=== PATIENT | male | born 1980 | race Hispanic/Latino ===

== ENCOUNTER 2022-01-26 18:47 | Inpatient (IN) | payer SELFPAY ==
[2022-01-26] VITALS (13 sets, daily range): BP systolic 127–142; BP diastolic 75–87; PULSE 93–120; RESP 17–28; TEMP 36.8; O2SAT 95–100
--- NOTE | ~2022-01-26 | US_ITS ---
EXAMINATION: US venous doppler [facility] DATE: 01/27/2022 16:58 INDICATION: Lymphadenopathy and swelling TECHNIQUE: Gillespie scale images without and with compression and Doppler images of the bilateral lower e xtremity veins were obtained. COMPARISON: None FINDINGS: The right common femoral vein, profunda femoral vein, femoral vein, popliteal vein, peroneal trunk, p osterior tibial veins, and greater saphenous vein are patent. The left common femoral vein, profunda femoral vein, femoral vein, popliteal vein, peroneal trunk, po sterior tibial veins, and greater saphenous vein are patent. IMPRESSION: 1. Patent bilateral lower extremity veins. No evidence of deep venous thrombosis. Reviewed, dictated and finalized at location A. IMPRESSION: 1. Patent bilateral lower extremity veins. No evidence of deep venous thrombosi s.
--- NOTE | ~2022-01-26 | US_ITS ---
EXAMINATION: US venous doppler [facility] DATE: 01/27/2022 16:59 INDICATION: Lymphedema and upper extremity swelling TECHNIQUE: Grayscale ultrasound images without and with compression and Doppler ultrasound images of the bilateral upper extremity veins were obtained. COMPARISON: CT from yesterday. FINDINGS: There is thrombus in the right brachial vein. The right internal jugular vein, subclavian vein, axill janna vein, basilic vein, and cephalic vein are patent. The radial vein and ulnar vein are not evaluate d. A left supraclavicular mass is noted, consistent with the mass seen on CT. There is thrombosis of the left internal jugular vein, subclavian vein, and axillary vein. The brachial vein and cephalic vein. The radial vein and ulnar vein are nondilated evaluated. IMPRESSION: 1. Thrombosis of the left internal jugular vein, subclavian vein, and axillary vein. 2. Thrombosis in the right brachial vein. Reviewed, dictated and finalized at location A.
--- NOTE | ~2022-01-26 | XR_ITS ---
EXAMINATION: XR chest 1V portable INDICATION: Shortness of breath TECHNIQUE: Portable AP chest at 1007 hours COMPARISON: CT from yesterday FINDINGS: There is mild atelectasis of the lungs. There is no pleural effusion or pneumothorax. The h eart size is normal. There is mild widening of the superior mediastinum. There is asymmetric soft tis bonifacio density in the left supraclavicular region. IMPRESSION: 1. Mild atelectasis. 2. Asymmetric soft tissue density in the left supraclavicular region and mild widening of the mediast inum, consistent with lymphadenopathy seen on the comparison CT. Reviewed, dictated and finalized at location A. IMPRESSION: 1. Mild atelectasis. 2. Asymmetric soft tissue density in the left supraclavicular region and mild w idening of the mediastinum, consistent with lymphadenopathy seen on the compari son CT.
--- NOTE | ~2022-01-26 | CT_ITS ---
EXAMINATION: CT soft tiss nk chst ab pel w DATE: 01/26/2022 23:26 INDICATION: Left neck swelling. Low back pain. Constipation. TECHNIQUE: Computed tomography (CT) of the neck, chest, abdomen, and pelvis was performed with 100 mL Omnipaque 350 intravenous contrast. Automated exposure control and iterative reconstruction techniqu e were employed. The dose-length product was 1454.90 mGy-cm. COMPARISON: CT abdomen and pelvis 03/12/2013 FINDINGS: NECK CT: There is widespread lymphadenopathy in the left neck including the left internal jugular, spinal acce ssory, superficial, and parotid chains. For example, a alex mass in left spinal accessory chain nani ures 5.4 x 4.9 cm. The cervical carotid arteries are normal. CHEST CT: The lungs demonstrate mild atelectasis. There are small bilateral pleural effusions. The heart size i s normal. No pericardial effusion. There is mediastinal and bilateral axillary lymphadenopathy. There is an intermuscular mass in left posterior thorax. There is hypodensity in left subclavian and axill janna veins suspicious for thrombosis. ABDOMEN/PELVIS CT: The liver and spleen are normal. The gallbladder is distended. The pancreas, adrenal glands, and kidn eys are normal. There are no dilated loops of bowel. The appendix is normal. There is a small volume of ascites. There is periportal, periceliac, mesenteric, aortocaval, left para-aortic, bilateral comm on iliac, bilateral external iliac, and bilateral internal iliac lymphadenopathy. There is a 2.0 x 1. 4 cm mass in the bladder. There are scattered peritoneal masses including serosal masses of the colon . There is widespread edema of the mesentery. Some of the pelvic veins are enlarged. There is mild omari mbar spondylosis. IMPRESSION: 1. Widespread lymphadenopathy involving the left neck, chest, abdomen, and pelvis. Left posterior jose st wall mass. Bladder mass. Peritoneal masses. The differential diagnosis includes widespread metasta tic disease, lymphoma, and infection such as tuberculosis. Ultrasound-guided core needle biopsy of a left neck lymph node is recommended. 2. Hypodensity in left subclavian and axillary veins and some of the pelvic veins suspicious for thro mbosis. Ultrasound is recommended. 3. Gallbladder distention, which may be secondary to fasting. 4. Small pleural effusions. 5. Small volume of ascites. Reviewed, dictated and finalized at location B. IMPRESSION: 1. Widespread lymphadenopathy involving the left neck, chest, abdomen, and pelv is. Left posterior chest wall mass. Bladder mass. Peritoneal masses. The differ ential diagnosis includes widespread metastatic disease, lymphoma, and infectio n such as tuberculosis. Ultrasound-guided core needle biopsy of a left neck lym ph node is recommended. 2. Hypodensity in left subclavian and axillary veins and some of the pelvic vei ns suspicious for thrombosis. Ultrasound is recommended. 3. Gallbladder distention, which may be secondary to fasting. 4. Small pleural effusions. 5. Small volume of ascites.
--- NOTE | 2022-01-26 22:02 | PC.NURSE ---
Seda used for interpretation.
--- NOTE | 2022-01-26 22:11 | PC.NURSE ---
Patient has swelling to the left side of his neck.
[2022-01-26] MEDS: MORPHINE SULFATE (*CRX) 4 MG/ML INJ IV PUSH (22:27)
[2022-01-26 22:37] LABS: Basophils Absolute Auto 0.1 K/mm3 (0.0-0.1); Basophils Percent Auto 0.8 % (0.2-1.2); Eosinophils Absolute Auto 0.2 K/mm3 (0-0.3); Eosinophils Percent Auto 2.4 % (0-4.4); Hemoglobin 13.3 g/dL (14.0-18.0); Immature Granulocyte Absolute 0.02 K/mm3 (0.00-0.031); Immature Granulocyte Percent A 0.2 % (0-0.5); Lymphocytes Absolute Auto 0.77 K/mm3 (0.9-3.2); Lymphocytes Percent Auto 7.7 % (18.3-44.2); Mean Corpuscular HGB Conc 33.3 g/dl (32-36); Mean Corpuscular Hemoglobin 27.9 pg (26-34); Monocytes Absolute Auto 0.8 K/mm3 (0.1-0.6); Monocytes Percent Auto 7.7 % (2.6-8.5); Neutrophils Absolute Auto 8.2 K/mm3 (1.3-6.7); Neutrophils Percent Auto 81.2 % (45.5-73.1); Platelet Count Result 366 k/mm3 (150-375); Red Blood Count 4.76 M/mm3 (4.6-6.20); Red Cell Distribution Width 13.6 % (11.5-14.5); White Blood Count 10.1 K/mm3 (4.5-10.0)
[2022-01-26 22:39] LABS: Alanine Aminotransferase 24 U/L (4-50); Albumin Level 3.5 g/dL (3.5-5.1); Alkaline Phosphatase 114 U/L (38-126); Anion Gap 9 mmol/L (8-16); Aspartate Amino Transferase 33 U/L (17-59); Bilirubin,Total 0.5 mg/dL (0.2-1.3); Blood Urea Nitrogen 10 mg/dL (9-20); Carbon Dioxide 22 mmol/L (22-30); Chloride 99 mmol/L (98-107); Estimated CRCL calculation 127 ml/min; Estimated Glomerular Filt Rate > 60; Glucose 108 mg/dL (65-110); Potassium 3.3 mmol/L (3.4-5.0); Sodium 130 mmol/L (137-145)
[2022-01-26 22:39] LABS: INR 1.2; Prothrombin Time 14.3 Seconds (11.1-14.7)
[2022-01-26 22:40] LABS: Partial Thromboplastin Time 29.1 SECONDS (22.3-36.8)
--- NOTE | 2022-01-26 23:04 | PC.NURSE ---
Patient taken to CT at this time.
[2022-01-27] VITALS (15 sets, daily range): BP systolic 112–131; BP diastolic 68–81; PULSE 88–106; RESP 16–28; TEMP 36.4–36.9; O2SAT 97–100
--- NOTE | 2022-01-27 01:15 | ED.GENADULT ---
HPI - General Adult General Chief complaint: Back Pain/Injury Stated complaint: low back pain for 2-3 weeks Time Seen by Provider: 01/26/22 21:55 History of Present Illness HPI narrative: Patient is a 41-year-old male that is Czech-speaking who presents ER for the low back pain. Its been ongoing for 2 to 3 weeks. Aching. Right side above his buttock. No radiation down his leg. He has had no fall or trauma. No lifting injury. Reports its worse late in the day when he comes home from work. He works in construction. No fevers or chills or sweats. Patient does report that he has been having issues with constipation over the last 6 weeks. He feels like he has a hard time using the restroom and so then he will take a laxative and is able to go. He did have a bowel movement today. No nausea or vomiting. No saddle anesthesia. No incontinence of bowel or bladder. No lower extremity weakness. After discussing the patient's back discomfort it was noted that patient had significant enlargement of the left side of his neck. He reports that just developed over the last day. He has noticed the breathing or swallowing or with turning his head. He reports his mom has cancer but he does not know what kind. She denies any other family history. Related Data Allergies Allergy/AdvReac Type Severity Reaction Status Date / Time No Known Allergies Allergy Verified 01/26/22 18:52 Review of Systems Review of Systems: All systems reviewed & are unremarkable except as noted in HPI and below Constitutional: Constitutional: Denies chills, Denies fever(s) and Denies weakness ENT: Denies nasal congestion and Denies sore throat Gastrointestinal: Gastrointestinal: Denies abdominal pain, Denies nausea and Denies vomiting Genitourinary: Genitourinary: Denies dysuria, Denies urinary frequency and Denies urinary incontinence Comments: Occasional difficulty urinating. Musculoskeletal: Musculoskeletal: Reports back pain, Denies joint swelling and Denies muscle cramps Neurologic: Denies headache(s), Denies focal weakness and Denies numbness PMFSH Past Medical History Medical History (Updated 01/27/22 @ 03:41 by Weston Park MD) Healthy adult male Surgical History Surgical History (Updated 01/27/22 @ 01:19 by Weston Park MD) No history of previous surgery Social History Social History (Updated 01/27/22 @ 01:20 by Weston Park MD) Alcohol intake: current Exam Narrative: GENERAL: Well-appearing, well-nourished, and in no acute distress. HEAD: Normocephalic, atraumatic. EYES: PERRL and EOMI. stye of the left upper eyelid. ENT: Mucous membranes moist. NECK: Swelling and regular mass left neck and supraclavicular region. CHEST: Clear to auscultation. No respiratory distress. HEART: Regular rate and rhythm. Normal peripheral pulses. : Normal-appearing penis without urethral discharge or penile lesions. Testicles nontender and without nodules. ABDOMEN: Soft, nontender, nondistended. EXTREMITIES: Normal range of motion. No edema. SKIN: Warm, dry, no rash. NEURO: Alert and oriented x3. Course Course Emergency Course: Patient has been informed of results and treatment plan. Discussed that he may have lymphoma and should be admitted for observation and biopsy of his lymph nodes. Patient would like to know if his discomfort could be related to an untreated sexually transmitted infection. He has no purulent discharge. His last sexual intercourse was several years ago. He would like a test just to be sure. We will oblige. General surgery has been consulted in regards to the biopsy. Vital Signs Vital signs: Vital Signs Temperature 98.3 F 01/26/22 18:50 Pulse Rate 120 H 01/26/22 18:50 Respiratory Rate 17 01/26/22 18:50 Blood Pressure 142/79 H 01/26/22 18:50 Pulse Oximetry 99 01/26/22 18:50 Temperature 98.3 F 01/26/22 18:50 Pulse Rate 94 01/27/22 02:00 Respiratory Rate 28 H 01/27/22 02
[2022-01-27] MEDS: MORPHINE SULFATE (*CRX) 4 MG/ML INJ IV PUSH ×2 (02:04→04:40)
[2022-01-27 03:51] LABS: Add Urine Microscopic? YES; Appearance Urine Clear (Clear); Bacteria Urine Trace /hpf; Bilirubin Urine Negative (Negative); Blood Urine Negative (Negative); Color Urine Yellow (Yellow); Glucose Urine UA Negative (Negative); Ketones Urine 1+ mg/dL (Negative); Leukocyte Esterase Ur Negative LEU/UL (Negative); Mucus Urine Rare /lpf; Nitrate Urine Negative (Negative); Protein Urine Negative (Negative); WBC Urine 0-3 /hpf
--- NOTE | 2022-01-27 04:00 | ADMGEN ---
This patient, Abhinav Schuler, was admitted to [facility] Surg Room 329-01. Patient/family oriented to hospital policies and general routines including ID bracelet, bed and alarms, visiting hours, pain management, procedures, bathroom and other care routines, personal items, smoking policy, room service/diet, and visiting hours. Information on how to activate the Rapid Response Team has been discussed. Patient/Family are encouraged to report perceived risks to care and to ask questions if they do not understand what they are told or what they should do.
--- NOTE | 2022-01-27 06:18 | PM.IMHP ---
H&P: HPI History of Present Illness Date/Time: 01/27/22 06:18 Chief Complaint: Back pain, constipation Narrative: 41-year-old male with no known previous medical history who presented to the ER with back pain and constipation for 3 weeks. The patient reports that he began having back pain just above his buttocks 3 weeks ago. The pain has been persistent but is usually improved with Tylenol. The pain is not worse with any movement he denies any eliciting factors. It has been accompanied by constipation and states that he has not had a bowel movement in LEs he takes laxatives. He has been having sick laxatives every few days. He reports generalized associated abdominal pain that is worse with palpation. He denies any fevers or chills. He has had sensation of incomplete bladder emptying, dysuria, dribbling of urine and decreased urine output. He has had markedly decreased appetite over the last month in his had a 50 lb weight loss. He reports that the pain in his back feels like it is bone deep and aching. He denies any nausea or vomiting. He has developed testicular swelling over the last couple of weeks but denies any testicular pain. He has noticed marked neck and shoulder swelling that started this morning. He has never had symptoms like this before. He was concerned that his symptoms could be associated with an STD. But he denies any high-risk sexual exposures. He reports that he cannot urinate unless he is sitting down and this has been new for the last month or so. He denies any difficulty swallowing, sore throat, dental pain, fevers or chills. He denies any chest pain or shortness of breath. He has been having associated fatigue. He denies any easy bruising or bleeding. He does have some tenderness to his right eyelid with some associated erythema and swelling of few days duration. History was obtained through the use of emergency medicine nurse practitioner services. Patient is Andorran-speaking only. The patient's mother had unknown type of cancer that she has survived. He reports that his father is in good health. Review of Systems Review of Systems: 12 systems were reviewed with pertinent positives and negatives per HPI. Except as documented in the HPI, all other systems were reviewed and are negative. [facility] Past Medical History Medical History Healthy adult male Surgical History Surgical History No history of previous surgery Family History Family History (Updated 01/27/22 @ 06:24 by Cierra Allison DO) Mother Cancer Social History Social History (Updated 01/27/22 @ 06:26 by Cierra Allison DO) Social History: He is . He has 3 children who are healthy. He drinks 1 tall boy a each weekend. He started smoking 2 years ago at the time of his divorce. He smokes a half a pack of cigarettes per day. He denies any illicit substance use. Smoking packs per day: 0.5 Smoking cigarettes per day: 10.0 Years smoked: 2 Smoking pack-years: 1.00 Smoking status: Current every day smoker Tobacco type: cigarettes Alcohol intake: never Substance use: never Spiritual care concerns: No Meds Home Medications and Allergies Allergies Allergy/AdvReac Type Severity Reaction Status Date / Time No Known Allergies Allergy Verified 01/26/22 18:52 Vital Signs Vital Signs - 24 hr 01/26/22 18:50 01/26/22 22:01 01/26/22 22:14 Temperature 98.3 F Pulse Rate 120 H 98 106 H Respiratory Rate 17 20 24 H Blood Pressure 142/79 H Pulse Oximetry 99 98 100 01/26/22 22:15 01/26/22 22:16 01/26/22 22:17 Temperature Pulse Rate 105 H 103 H 103 H Respiratory Rate 25 H Blood Pressure 138/87 127/82 Pulse Oximetry 95 98 98 01/26/22 22:31 01/26/22 22:32 01/26/22 22:46 Temperature Pulse Rate 107 H 99 94 Respiratory Rate 28 H 27 H Blood Pressure 139/86 Pulse Oximetry 96 98 98
[2022-01-27] MEDS: SODIUM CHLORIDE 0.9% IV 1,000 ML 125 ML IV CONT (07:14)
[2022-01-27 07:28] LABS: Basophils Absolute Auto 0.1 K/mm3 (0.0-0.1); Basophils Percent Auto 0.7 % (0.2-1.2); Eosinophils Absolute Auto 0.2 K/mm3 (0-0.3); Eosinophils Percent Auto 2.3 % (0-4.4); Hematocrit 38.8 % (42.0-52.0); Hemoglobin 12.7 g/dL (14.0-18.0); Immature Granulocyte Absolute 0.03 K/mm3 (0.00-0.031); Immature Granulocyte Percent A 0.3 % (0-0.5); Lymphocytes Absolute Auto 0.71 K/mm3 (0.9-3.2); Lymphocytes Percent Auto 7.5 % (18.3-44.2); Mean Corpuscular HGB Conc 32.7 g/dl (32-36); Mean Corpuscular Hemoglobin 27.8 pg (26-34); Mean Corpuscular Volume 84.9 fl (80-100); Mean Platelet Volume 8.9 fl (7.4-10.4); Monocytes Absolute Auto 0.7 K/mm3 (0.1-0.6); Monocytes Percent Auto 7.6 % (2.6-8.5); Neutrophils Absolute Auto 7.7 K/mm3 (1.3-6.7); Neutrophils Percent Auto 81.6 % (45.5-73.1); Platelet Count Result 355 k/mm3 (150-375); Red Blood Count 4.57 M/mm3 (4.6-6.20); White Blood Count 9.5 K/mm3 (4.5-10.0)
[2022-01-27 07:39] LABS: Alanine Aminotransferase 22 U/L (4-50); Albumin Level 3.2 g/dL (3.5-5.1); Alkaline Phosphatase 125 U/L (38-126); Anion Gap 5 mmol/L (8-16); Aspartate Amino Transferase 34 U/L (17-59); Bilirubin,Total 0.4 mg/dL (0.2-1.3); Blood Urea Nitrogen 8 mg/dL (9-20); Calcium 7.8 mg/dL (8.4-10.2); Carbon Dioxide 24 mmol/L (22-30); Chloride 100 mmol/L (98-107); Estimated CRCL calculation 127 ml/min; Estimated Glomerular Filt Rate > 60; Glucose 100 mg/dL (65-110); Potassium 3.4 mmol/L (3.4-5.0); Sodium 129 mmol/L (137-145)
[2022-01-27 07:58] LABS: Monoscreen Negative (Negative); Negative Monotest Control Negative (Negative); Positive Monotest Control Positive (Positive)
[2022-01-27] MEDS: HYDROcodone/acetaminophen (*CRX) 5-325 MG TABLET 1 TAB PO ×4 (08:10→22:43)
[2022-01-27] MEDS: POTASSIUM CHLORIDE INJ 40 MEQ in SODIUM CHLORIDE 0.9% IV 500 ML 130 MEQ IVPB (08:11)
[2022-01-27 08:19] LABS: HIV 1/2 Ab P24 Ag Result Negative (Negative)
--- NOTE | 2022-01-27 10:54 | PM.CNGS ---
Assessment and Plan Assessment and plan (1) Diffuse lymphadenopathy: Code(s): R59.1 - Generalized enlarged lymph nodes Status: Acute Assessment and Plan: suspect lymphoma, will get biopsy today in OR for further workup (2) Dehydration: Code(s): E86.0 - Dehydration Status: Acute Assessment and Plan: cont IV hydration (3) Tobacco abuse: Code(s): Z72.0 - Tobacco use Status: Acute Assessment and Plan: tobacco cessation discussed History of Present Illness Consult details Consult date: 01/27/22 Reason for consult: other (diffuse lymphadenopathy) Requesting physician: Althea Alfaro DO Narrative: Pt is a 41 y/o M presenting to ED c/o back pain, progressive weakness, poor appetite over last month. Pt reports 50 lbs unintentional wt loss. Pt reports severe lower back pain. Pt also c constipation and urinary straining. Pt reports prior to the last month he had no med issues. Pt has also noted swelling along his left neck. Review of Systems Constitutional: Constitutional: Reports as per HPI, Reports anorexia, Reports body ache(s), Denies chills, Reports fatigue, Denies fever(s), Reports lethargy, Reports malaise, Denies night sweats, Reports poor appetite, Reports weakness and Reports weight loss Eyes: Eyes: Reports no additional eye complaints ENT: Reports system reviewed and no additional complaints, except as documented Cardiovascular: Cardiovascular: Reports no additional cardiovascular complaints Respiratory: Respiratory: Reports no additional respiratory complaints Gastrointestinal: Gastrointestinal: Reports abdominal pain, Reports constipation and Reports GI cramping Genitourinary: Genitourinary: Reports oliguria, Reports scrotal swelling and Reports urinary hesitancy Musculoskeletal: Musculoskeletal: Reports back pain and Reports myalgias Integumentary/Breasts: Skin/Breast: Reports system reviewed and no additional complaints, except as docu Neurologic: Reports system reviewed and no additional complaints, except as documented Psychiatric: Psychiatric: Reports no additional psychiatric complaints Endocrine: Endocrine: Reports no additional endocrine complaints Hematologic/Lymphatic: Hematologic/Lymphatic: Reports lymphadenopathy Allergic/Immunologic: Allergic/Immunologic: Reports no additional allergic/immunologic complaints [facility] Past Medical History Medical History Healthy adult male Surgical History Surgical History No history of previous surgery Family History Family History Mother Cancer Social History Social History Social History: He is . He has 3 children who are healthy. He drinks 1 tall boy a each weekend. He started smoking 2 years ago at the time of his divorce. He smokes a half a pack of cigarettes per day. He denies any illicit substance use. Smoking packs per day: 0.5 Smoking cigarettes per day: 10.0 Years smoked: 2 Smoking pack-years: 1.00 Smoking status: Current every day smoker Tobacco type: cigarettes Alcohol intake: never Substance use: never Spiritual care concerns: No Meds Home Medications and Allergies Home Medications Medication Instructions Recorded Confirmed Type No Home Medications 01/27/22 01/27/22 History Allergies Allergy/AdvReac Type Severity Reaction Status Date / Time No Known Allergies Allergy Verified 01/26/22 18:52 Vital Signs Vital Signs - 24 hr 01/26/22 18:50 01/26/22 22:01 01/26/22 22:14 Temperature 36.8 C Pulse Rate 120 H 98 106 H Respiratory Rate 17 20 24 H Blood Pressure 142/79 H Pulse Oximetry 99 98 100 01/26/22 22:15 01/26/22 22:16 01/26/22 22:17 Temperature Pulse Rate 105 H 103 H 103 H Respiratory
[2022-01-27] MEDS: ERYTHROMYCIN OPHTH OINTMENT 1 GM TUBE 1 APPLIC LEFT EYE ×3 (12:07→21:07)
--- NOTE | 2022-01-27 13:24 | PM.CNPUL ---
Assessment and Plan Assessment and plan (1) Diffuse lymphadenopathy: Code(s): R59.1 - Generalized enlarged lymph nodes Status: Acute Assessment and Plan: Patient with diffuse lymphadenopathy and is scheduled to have a surgical biopsy of his left neck lymphadenopathy later today. He has no parenchymal pulmonary infiltrates and he is on room air with saturations 98%. He has no fever, chills, rigors, cough, phlegm production, hemoptysis or chest pains. He is HIV negative. He has no evidence of a bacterial pneumonia at this time and I agree with no antibiotics pending additional studies. This is a low likelihood that he has disseminated tuberculosis but I agree with QuantiFERON gold, AFB q.a.m. x3 and respiratory isolation until and alternative diagnosis is made. He has no history of reactive airways disease and no wheezing currently thus there is no need for bronchodilators or steroids. upper and lower extremity Dopplers are ordered to assess for DVT. Discussed with Dr. Alfaro. Will follow with you History of Present Illness History of Present Illness Consult date: 01/27/22 Requesting physician: Althea Alfaro DO Reason for consult: pneumonia and other (Lymphadenopathy) Chief complaint: Lymphadenopathy Narrative: 01/27/2022: This is a new pulmonary consult for possible tuberculosis pneumonia and diffuse lymphadenopathy. 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 The patient denies any chronic medical conditions. The patient tells me he has had constipation for 1 month, 3 weeks decreased appetite with weight loss and 2 day history of left neck swelling. Patient also has fatigue as well as back pain and presented to the emergency department. White blood cell count was 10.1, hemoglobin 13.3, creatinine 0.6, LFTs were normal, TSH 1.61. CT scan of the chest demonstrated small bilateral pleural effusions, mediastinal bilateral axillary lymphadenopathy, intermuscular mass in the left posterior thorax, possible subclavian and axillary vein thrombosis, left neck lymphadenopathy, small volume ascites, periportal, Demian celiac, mesenteric, aortocaval, left pair a aortic, bilateral common iliac, bilateral external iliac and bilateral internal iliac lymphadenopathy. There is a 2 x 1.4 cm mass in the bladder there are scattered peritoneal masses. This was concerning for lymphadenopathy or possible tuberculosis. the patient has remained on room air with saturations 98%. Patient's HIV test is negative. I was consulted. Patient denies any respiratory limitations in his life and has no shortness of breath or dyspnea on exertion currently. Tells me he has never had any fever, chills or rigors. He denies any cough, phlegm production or hemoptysis. He states he had no trauma to the left neck area. He states he has decreased appetite for 3 weeks with weight loss and he has been constipated for 1 month. He tells me he has had no respiratory limitations in his activities of daily living and has worked as a brickmason apprentice doing heavy construction. Patient denies any exposure to tuberculosis, he denies sure in IV needle CT, he denies prostitutes or homosexual encounters. Patient is . Patient smokes 1/2 a pack a cigarettes for the last 2 years for a total of 1 pack year. patient denies stand blasting, welding, asbestos were, professional painting or steel miller helper distillery. Upper and lower extremity Dopplers are pending. QuantiFERON gold is pending. His sputum for AFB has been ordered q.day x3 and is pending. Patient is scheduled to have a surgical biopsy of the left neck lymphadenopathy later today. DATA: EXAMINATION: CT soft tiss nk chst ab pel w DATE: 01/26/2022 23:26 INDICATION: Left neck swelling. Low back pain. Constipation. TECHNIQUE: Computed tomography (CT) of the neck, chest, abdomen, and pelvis was performed with 100 mL Omnipaque 350 intra
--- NOTE | 2022-01-27 17:17 | PM.IMPN ---
Progress Note: A&P Assessment and Plan (1) Bladder mass: Code(s): N32.89 - Other specified disorders of bladder Status: Acute Assessment and Plan: Urology consult pending (2) Chest wall mass: Code(s): R22.2 - Localized swelling, mass and lump, trunk Status: Acute Assessment and Plan: Pulmonology consult pending (3) Deep vein thrombosis of both upper extremities: Code(s): I82.623 - Acute embolism and thrombosis of deep veins of upper extremity, bilateral Status: Acute Assessment and Plan: Started on heparin drip (4) Diffuse lymphadenopathy: Code(s): R59.1 - Generalized enlarged lymph nodes Status: Acute Assessment and Plan: Likely due to underlying malignancy with unknown primary, oncology consulted, general surgery consulted for possible lymph node biopsy (5) Tobacco abuse: Code(s): Z72.0 - Tobacco use Status: Acute (6) Dehydration: Code(s): E86.0 - Dehydration Status: Acute (7) Hyponatremia: Code(s): E87.1 - Hypo-osmolality and hyponatremia Status: Acute Assessment and Plan: Slightly worse today, unsure of etiology, could be SIADH versus hypovolemia, will start gentle IV fluids and recheck in the a.m. (8) Hypokalemia: Code(s): E87.6 - Hypokalemia Status: Acute Assessment and Plan: Resolved, recheck and monitor (9) Hordeolum externum of left upper eyelid: Code(s): H00.014 - Hordeolum externum left upper eyelid Status: Acute Additional Plan 41-year-old Uzbek-speaking male here with severely diffuse lymphadenopathy, multiple upper extremity DVTs in the bilateral upper extremities, chest wall mass, 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 Oncology, pulmonology, Urology, General surgery consultations all pending. Concern for possible active TB disease was noted on imaging, patient currently in precautions and QuantiFERON gold testing is pending. As soon as the test comes back negative, general surgery will proceed with a biopsy of 1 of the lymph nodes so we can further delineate the etiology of the masses and lymphadenopathy. Time Spent With Patient Time with patient: Greater than 35 minutes Subjective Date/time seen: 01/27/22 13:17 Patient seen with the use of the translation services. We discussed the abnormal findings on his CT scan and concern for blood clots as well as malignancy. Patient states he has been feeling quite awful for the last few months. He admits to significant fatigue, belly pain, constipation and urinary retention. He also has had chest and back pain as well as some associated shortness of breath. He was very upset to hear that it could be malignancy. He denies any recent travel or medications. Review of Systems Review of Systems: All systems reviewed & are unremarkable except as noted in HPI and below Exam Const: General: no acute distress HENMT: Mouth: Yes moist mucous membranes Eyes: General: appearance normal, both eyes and all related structures Neck: Neck: no JVD Resp: Auscultation: clear to auscultation bilaterally Cardio: Rate: regular rate Rhythm: regular rhythm GI: GI Palp: Yes Soft to palpation and Yes Tenderness to palpation present (GI) Neuro: General: oriented to person, oriented to place, oriented to time, no focal motor deficits and CN's II-XI intact bilaterally Psych: Mental Status: mental status grossly normal Objective Data Vital Signs Vital Signs: Vital Signs - 24 hr 01/26/22 18:50 01/26/22 22:01 01/26/22 22:14 Temperature 98.3 F Pulse Rate 120 H 98 106 H Respiratory Rate 17 20 24 H Blood Pressure 142/79 H Pulse Oximetry 99 98 100 01/26/22 22:15 01/26/22 22:16 01/26/22 22:17 Temperature Pulse Rate 105 H 103 H 103 H Respiratory Rate 25 H Blood Pressure 138/87 127/82 Pulse Oximetry 95 98 98 01/26/22 22:31 01/26/22 22:32 01/26/22 22:46 Temperat
[2022-01-27 19:15] LABS: INR 1.2; Prothrombin Time 14.5 Seconds (11.1-14.7)
[2022-01-27 19:16] LABS: Partial Thromboplastin Time 32.7 SECONDS (22.3-36.8)
[2022-01-27 20:38] LABS: Basophils Absolute Auto 0.1 K/mm3 (0.0-0.1); Basophils Percent Auto 0.7 % (0.2-1.2); Eosinophils Absolute Auto 0.2 K/mm3 (0-0.3); Eosinophils Percent Auto 2.2 % (0-4.4); Hematocrit 38.3 % (42.0-52.0); Hemoglobin 12.4 g/dL (14.0-18.0); Immature Granulocyte Absolute 0.02 K/mm3 (0.00-0.031); Immature Granulocyte Percent A 0.2 % (0-0.5); Lymphocytes Absolute Auto 0.67 K/mm3 (0.9-3.2); Lymphocytes Percent Auto 8.1 % (18.3-44.2); Mean Corpuscular HGB Conc 32.4 g/dl (32-36); Mean Corpuscular Hemoglobin 27.8 pg (26-34); Mean Corpuscular Volume 85.9 fl (80-100); Monocytes Absolute Auto 0.8 K/mm3 (0.1-0.6); Monocytes Percent Auto 9.4 % (2.6-8.5); Neutrophils Absolute Auto 6.6 K/mm3 (1.3-6.7); Neutrophils Percent Auto 79.4 % (45.5-73.1); Platelet Count Result 345 k/mm3 (150-375); Red Blood Count 4.46 M/mm3 (4.6-6.20); White Blood Count 8.3 K/mm3 (4.5-10.0)
[2022-01-27] MEDS: HEPARIN SOD/D5W 100 UNITS/ML 25,000 UNITS/250 ML BAG 12 UNITS IV CONT (21:07)
[2022-01-27] MEDS: HEPARIN SODIUM 5,000 UNITS/ML VIAL 5500 UNITS IV PUSH (21:08)
[2022-01-28] MEDS: HYDROmorphone HCL INJ (*CRX) 1 MG/ML SYR IV PUSH ×3 (01:29→08:39)
[2022-01-28 03:49] LABS: Basophils Absolute Auto 0.1 K/mm3 (0.0-0.1); Basophils Percent Auto 0.7 % (0.2-1.2); Eosinophils Absolute Auto 0.2 K/mm3 (0-0.3); Eosinophils Percent Auto 1.9 % (0-4.4); Hematocrit 39.3 % (42.0-52.0); Hemoglobin 12.8 g/dL (14.0-18.0); Immature Granulocyte Absolute 0.03 K/mm3 (0.00-0.031); Immature Granulocyte Percent A 0.3 % (0-0.5); Lymphocytes Absolute Auto 0.94 K/mm3 (0.9-3.2); Lymphocytes Percent Auto 10.4 % (18.3-44.2); Mean Corpuscular HGB Conc 32.6 g/dl (32-36); Mean Corpuscular Hemoglobin 27.8 pg (26-34); Mean Corpuscular Volume 85.4 fl (80-100); Mean Platelet Volume 8.9 fl (7.4-10.4); Monocytes Absolute Auto 0.7 K/mm3 (0.1-0.6); Monocytes Percent Auto 7.7 % (2.6-8.5); Neutrophils Absolute Auto 7.2 K/mm3 (1.3-6.7); Platelet Count Result 390 k/mm3 (150-375); White Blood Count 9.1 K/mm3 (4.5-10.0)
[2022-01-28 04:03] LABS: Partial Thromboplastin Time 37.8 SECONDS (22.3-36.8)
[2022-01-28] MEDS: HEPARIN SODIUM 5,000 UNITS/ML VIAL 5500 UNITS IV PUSH (05:08)
[2022-01-28] MEDS: ERYTHROMYCIN OPHTH OINTMENT 1 GM TUBE 1 APPLIC LEFT EYE ×5 (05:09→21:16)
[2022-01-28 06:00] VITALS: BP 118/76; PULSE 90; RESP 18; TEMP 36.5; O2SAT 98
[2022-01-28 08:00] VITALS: PULSE 97; RESP 16; O2SAT 98
[2022-01-28 08:05] VITALS: O2SAT 98
--- NOTE | 2022-01-28 08:31 | PC.NURSE ---
Heparin GTT off per MD order prior to biopsy. Dr Caicedo aware.
--- NOTE | 2022-01-28 09:49 | PM.PNPUL ---
Progress Note: A&P Assessment and Plan (1) Diffuse lymphadenopathy: Code(s): R59.1 - Generalized enlarged lymph nodes Status: Acute Assessment and Plan: 01/27 Patient with diffuse lymphadenopathy and is scheduled to have a surgical biopsy of his left neck lymphadenopathy later today. He has no parenchymal pulmonary infiltrates and he is on room air with saturations 98%. He has no fever, chills, rigors, cough, phlegm production, hemoptysis or chest pains. He is HIV negative. He has no evidence of a bacterial pneumonia at this time and I agree with no antibiotics pending additional studies. This is a low likelihood that he has disseminated tuberculosis but I agree with QuantiFERON gold, AFB q.a.m. x3 and respiratory isolation until and alternative diagnosis is made. He has no history of reactive airways disease and no wheezing currently thus there is no need for bronchodilators or steroids. upper and lower extremity Dopplers are ordered to assess for DVT. 01/28 I interviewed the patient with a video bell person. Patient has no respiratory complaints and he remains on room air with saturations 98%. He denies fever, chills, cough, phlegm production or hemoptysis. His white blood cell count is 9.1. Patient was started on IV heparin for a left IJ, left subclavian and left axillary DVT. right brachial vein thrombus. Lower extremity Dopplers were negative. Patient states that his neck mass may be slightly smaller today. QuantiFERON gold is pending. eventual surgical left neck biopsy. Discussed with Dr. Caicedo. Will follow with you Subjective Date/time seen: 01/28/22 09:49 Interval history: 01/27/2022: This is a new pulmonary consult for possible tuberculosis pneumonia and diffuse lymphadenopathy. 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 The patient denies any chronic medical conditions. The patient tells me he has had constipation for 1 month, 3 weeks decreased appetite with weight loss and 2 day history of left neck swelling. Patient also has fatigue as well as back pain and presented to the emergency department. White blood cell count was 10.1, hemoglobin 13.3, creatinine 0.6, LFTs were normal, TSH 1.61. CT scan of the chest demonstrated small bilateral pleural effusions, mediastinal bilateral axillary lymphadenopathy, intermuscular mass in the left posterior thorax, possible subclavian and axillary vein thrombosis, left neck lymphadenopathy, small volume ascites, periportal, Demian celiac, mesenteric, aortocaval, left pair a aortic, bilateral common iliac, bilateral external iliac and bilateral internal iliac lymphadenopathy. There is a 2 x 1.4 cm mass in the bladder there are scattered peritoneal masses. This was concerning for lymphadenopathy or possible tuberculosis. the patient has remained on room air with saturations 98%. Patient's HIV test is negative. I was consulted. Patient denies any respiratory limitations in his life and has no shortness of breath or dyspnea on exertion currently. Tells me he has never had any fever, chills or rigors. He denies any cough, phlegm production or hemoptysis. He states he had no trauma to the left neck area. He states he has decreased appetite for 3 weeks with weight loss and he has been constipated for 1 month. 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 Patient denies any exposure to tuberculosis, he denies sure in IV needle CT, he denies prostitutes or homosexual encounters. Patient is . Patient smokes 1/2 a pack a cigarettes for the last 2 years for a total of 1 pack year. patient denies stand blasting, welding, asbestos were, professional painting or steel tandem mill sticker. Upper and lower extremity Dopplers are pending. QuantiFERON gold is pending. His sputum for AFB has been ordered q.day x3 and is pendi
--- NOTE | 2022-01-28 10:40 | PM.IMPN ---
Progress Note: A&P Assessment and Plan (1) Bladder mass: Code(s): N32.89 - Other specified disorders of bladder Status: Acute (2) Chest wall mass: Code(s): R22.2 - Localized swelling, mass and lump, trunk Status: Acute (3) Deep vein thrombosis of both upper extremities: Code(s): I82.623 - Acute embolism and thrombosis of deep veins of upper extremity, bilateral Status: Acute (4) Tobacco abuse: Code(s): Z72.0 - Tobacco use Status: Acute (5) Dehydration: Code(s): E86.0 - Dehydration Status: Acute (6) Hyponatremia: Code(s): E87.1 - Hypo-osmolality and hyponatremia Status: Acute (7) Hypokalemia: Code(s): E87.6 - Hypokalemia Status: Acute (8) Diffuse lymphadenopathy: Code(s): R59.1 - Generalized enlarged lymph nodes Status: Acute (9) Constipation: Code(s): K59.00 - Constipation, unspecified Status: Acute (10) Back pain: Code(s): M54.9 - Dorsalgia, unspecified Status: Acute Additional Plan 41-year-old Wolof-speaking male here with severely diffuse lymphadenopathy, multiple upper extremity DVTs in the bilateral upper extremities, chest wall mass, 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 Oncology, pulmonology, Urology, General surgery consultations all pending. Concern for possible active TB disease was noted on imaging, patient currently in precautions and QuantiFERON gold testing is pending. As soon as the test comes back negative, general surgery will proceed with a biopsy of 1 of the lymph nodes so we can further delineate the etiology of the masses and lymphadenopathy. 01/27/22 Pulmonology consult pending Started on heparin drip Likely due to underlying malignancy with unknown primary, oncology consulted, general surgery consulted for possible lymph node biopsy Slightly worse today, unsure of etiology, could be SIADH versus hypovolemia, will start gentle IV fluids and recheck in the a.m. Resolved, recheck and monitor 01/28/22 general diet LMWH 1mg/kg dilaudid IV -> percocet PO 5/325 and 10/325 PRN miralax and dulcolax PRN reprogram bx when Quant gold resulted cont airborne precautions cont supportive care pt may shower Subjective Date/time seen: 01/28/22 10:40 pt doing ok complains of back pain acute on chronic and constipation POC reviewed w pulm surg and RN will treat DVT w LMWH BID until quantiferon returns Exam Narrative: General: No acute distress, well-developed well-nourished HEENT: Mucous membranes are moist Respiratory: Clear to auscultation bilaterally, no increased work of breathing Cardiovascular: Regular rate, regular rhythm, 2+ bilateral radial pedal pulses Gastrointestinal: nondistended, generalized tenderness to palpation Skin: No jaundice, no pallor Musculoskeletal: No clubbing, cyanosis or edema Neurological: Alert and oriented, speech is clear, no facial asymmetry Psychiatric: Appropriate mood and affect, pleasant and cooperative Hematologic/lymphatic: multiple lymph nodes all nontender but grossly enlarged, no petechiae, no bruising Objective Data Vital Signs Vital Signs: Vital Signs - 24 hr 01/27/22 12:00 01/27/22 16:00 01/27/22 20:00 Temperature 98.2 F 97.5 F L 98.4 F Pulse Rate 96 106 H 98 Respiratory Rate 16 18 18 Blood Pressure 127/68 125/76 112/75 Pulse Oximetry 99 98 98 01/27/22 22:00 01/28/22 06:00 01/28/22 08:05 Temperature 98.4 F 97.7 F Pulse Rate 98 90 Respiratory Rate 18 18 Blood Pressure 112/75 118/76 Pulse Oximetry 98 98 98 Intake/Output Intake/Output: Intake & Output 01/25/22 01/26/22 01/27/22 01/28/22 23:59 23:59 23:59 23:59 Intake Total 2380 240 Output Total 220 Balance 2160 240 Meds/Results Medications: Active Medications Generic Name Dose Route Start Last Admin Trade Name Freq PRN Reason Stop Dose Admin Bisacodyl 10 mg 01/28/22 10:35 Bisacodyl 10 Mg
[2022-01-28] MEDS: ENOXAPARIN 80 MG/0.8 ML SYRINGE 68 MG SUB-Q ×2 (11:19→21:16)
[2022-01-28] MEDS: oxyCODONE/ACETAMINOPHEN (*CRX) 5-325 MG TABLET 1 TABLET PO ×3 (12:32→21:15)
[2022-01-28] MEDS: oxyCODONE HCL (*CRX) 5 MG TAB IR PO ×3 (12:32→21:16)
--- NOTE | 2022-01-28 13:56 | PM.PNGS ---
Progress Note: A&P Assessment and Plan (1) Diffuse lymphadenopathy: Code(s): R59.1 - Generalized enlarged lymph nodes Status: Acute Assessment and Plan: will likely need biopsy, awaiting TB test prior to OR (2) Deep vein thrombosis of both upper extremities: Code(s): I82.623 - Acute embolism and thrombosis of deep veins of upper extremity, bilateral Status: Acute Assessment and Plan: cont Heparin gtt, will need to hold prior to bx Subjective Subjective Date/Time Seen: 01/28/22 13:56 no acute issues overnight, reports L neck swelling seems improved Review of Systems Review of Systems: All systems reviewed & are unremarkable except as noted in HPI and below Exam Const: General: cooperative, comfortable and no acute distress Neck: Lymphatic: lymphadenopathy Resp: Auscultation: clear to auscultation bilaterally Cardio: Rate: regular rate Rhythm: regular rhythm GI: Inspection: normal to inspection GI Palp: Yes Soft to palpation and No Tenderness to palpation present (GI) Auscultation: normal bowel sounds Objective Data Vital Signs Vital Signs: Vital Signs - 24 hr 01/27/22 16:00 01/27/22 20:00 01/27/22 22:00 Temperature 36.4 C L 36.9 C 36.9 C Pulse Rate 106 H 98 98 Respiratory Rate 18 18 18 Blood Pressure 125/76 112/75 112/75 Pulse Oximetry 98 98 98 01/28/22 06:00 01/28/22 08:05 Temperature 36.5 C Pulse Rate 90 Respiratory Rate 18 Blood Pressure 118/76 Pulse Oximetry 98 98 Intake/Output Intake/Output: Intake & Output 01/25/22 01/26/22 01/27/22 01/28/22 23:59 23:59 23:59 23:59 Intake Total 2380 240 Output Total 220 Balance 2160 240 Meds/Results Medications: Active Medications Generic Name Dose Route Start Last Admin Trade Name Freq PRN Reason Stop Dose Admin Bisacodyl 10 mg 01/28/22 10:35 Bisacodyl 10 Mg Suppository RECTAL QAM PRN Constipation 2nd choice Enoxaparin Sodium 68 mg 01/28/22 11:00 01/28/22 11:19 Enoxaparin 80 Mg/0.8 Ml Syringe SUB-Q 68 mg Q12HR KATE Administration Erythromycin 1 applic 01/27/22 05:00 01/28/22 12:34 Erythromycin Ophth Ointment 1 Gm Tube LEFT EYE 1 applic Q4HWA KATE Administration Hydromorphone HCl 1 mg 01/28/22 10:37 Hydromorphone Hcl Inj (*Crx) 1 Mg/Ml Syr IV PUSH Q6H PRN Breakthrough Pain Ondansetron HCl 4 mg 01/27/22 03:05 Ondansetron Inj 4 Mg/2 Ml Vial IV PUSH Q4H PRN Nausea Oxycodone HCl 5 mg 01/28/22 10:39 01/28/22 12:32 Oxycodone Hcl (*Crx) 5 Mg Tab Ir PO 5 mg Q4H PRN Administration Pain Rated 7-10 Oxycodone/Acetaminophen 1 tablet 01/28/22 10:34 01/28/22 12:32 Oxycodone/Acetaminophen (*Crx) 5-325 Mg Tablet PO 1 tablet Q4H PRN Administration Pain Rated 4-6 Oxycodone/Acetaminophen 1 tablet 01/28/22 10:39 Oxycodone/Acetaminophen (*Crx) 5-325 Mg Tablet PO Q4H PRN Pain Rated 7-10 Polyethylene Glycol 17 gm 01/28/22 10:34 Polyethylene Glycol 3350 17 Gm Powd.Pack PO DAILY PRN Constipation Radiology Results: ITS Impressions Neck/Chest/Abdomen/Pelvis CT 01/27/22 08:29 IMPRESSION: 1. Widespread lymphadenopathy involving the left neck, chest, abdomen, and pelvis. Left posterior chest wall mass. Bladder mass. Peritoneal masses. The differential diagnosis includes widespread metastatic disease, lymphoma, and infection such as tuberculosis. Ultrasound-guided core needle biopsy of a left neck lymph node is recommended. 2. Hypodensity in left subclavian and axillary veins and some of the pelvic veins suspicious for thrombosis. Ultrasound is recommended. 3. Gallbladder distention, which may be secondary to fasting. 4. Small pleural effusions. 5. Small volume of ascites. Chest X-Ray 01/27/22 10:24 IMPRESSION: 1. Mild atelectasis. 2. Asymmetric soft tissue density in the left supraclavicular region and mild widening of the mediastinum, consistent with lymphadenopathy s
[2022-01-28 14:00] VITALS: BP 128/79; PULSE 97; RESP 16; TEMP 36.7; O2SAT 98
--- NOTE | 2022-01-28 19:03 | PDONCCN ---
HPI - Date of Consult Date/Time: 01/28/22 19:03 Requesting Physician: Althea Alfaro DO Primary Care Provider: SURVEY RESEARCH MANAGER PHYSICIAN - Consult Narrative Reason for consult: Generalized lymphadenopathy Narrative: Abhinav Schuler is a 41 year old male presented to the ER with complain of back pain and constipation for 3 weeks duration. Patient does not speak Polish and history was obtained through the help of tearer. Patient reports having back and buttock pain for past 3 weeks duration. He also complain of almost 50 lb weight loss in last 4 weeks duration with poor appetite in generalize achiness. He noticed swelling in the left side of the neck about few days ago. CT soft tissue neck chest abdomen pelvis was done that showed widespread lymphadenopathy involving the left neck chest abdomen and pelvis along with left posterior chest wall mass and bladder mass. Doppler study of the upper extremity showed thrombosis of the left internal jugular, subclavian and axillary vein with thrombosis in the right brachial vein. TB testing was ordered prior to the lymph node biopsy. Other labs showed normal WBC count and platelet count with mild anemia. Review of Systems - Review of Systems All systems reviewed & are unremarkable except as noted in HPI and bel - Neurologic Reports system reviewed and no additional complaints, except as documented, Reports behavioral changes, Reports weakness, Denies headache(s), Denies focal weakness, Denies numbness PMFSH Medical History: Medical History (Last Reviewed 01/27/22 @ 10:59 by Cass Will MD) Healthy adult male Surgical History: Surgical History (Last Reviewed 01/27/22 @ 10:59 by Cass Will MD) No history of previous surgery Family History: Family History (Last Reviewed 01/27/22 @ 10:59 by Cass Will MD) Mother Cancer - Social History Social History: Social History (Last Reviewed 01/27/22 @ 10:59 by Cass Will MD) Alcohol Use: Alcohol intake: never Substance Use: Substance use: never Others: Spiritual care concerns: No Smoking Status: Smoking status: Current every day smoker Tobacco type: cigarettes Smoking Pack-years: Smoking packs per day: 0.5 Smoking cigarettes per day: 10.0 Years smoked: 2 Smoking pack-years: 1.00 Meds Home Medications Medication Instructions Recorded Confirmed Type No Home Medications 01/27/22 01/27/22 History Allergies Allergy/AdvReac Type Severity Reaction Status Date / Time No Known Allergies Allergy Verified 01/26/22 18:52 Results - Labs CBC & Chem 7: 01/28/22 03:26 01/27/22 07:17 Labs: Short CBC 01/27/22 01/28/22 Range/Units 20:20 03:26 WBC 8.3 9.1 (4.5-10.0) K/mm3 Hgb 12.4 L 12.8 L (14.0-18.0) g/dL Hct 38.3 L 39.3 L (42.0-52.0) % Plt Count 345 390 H (150-375) k/mm3 Assessment and Plan - Additional Plan Generalized lymphadenopathy. Patient is a 41-year-old [place]ian male. He presented to the hospital with constipation lower back pain and generalized achiness along with 50 lb weight loss. He denies any fevers and chills but does have some night sweats. CT scan showed extensive lymphadenopathy. On my examination there is a prominent lymphadenopathy in the neck as well as bilateral axilla. TB testing was ordered. General surgery has been consulted for lymph node biopsy. Labs reviewed. These findings are quite worrisome for lymphoproliferative disorder. I have provided him my office information for follow-up. Will make further recommendation of the biopsy report is available. I have answered all the questions to patient's satisfaction. Exam - Vital Signs Vital Signs - 24 hr 01/27/22 20:00 01/27/22 22:00 01/28/22 06:00 Temperature 36.9 C 36.9 C 36.5 C Pulse Rate 98 98 90 Respiratory Rate 18 18 18 Blood Pressure 112/75 112/75 118/76 Pulse Oximetry 98 98 98 01/28/22 08:00 0
[2022-01-28 21:26] VITALS: BP 119/73; PULSE 90; RESP 18; TEMP 36.9; O2SAT 98
[2022-01-28 22:45] VITALS: TEMP 36.9
[2022-01-29] MEDS: HYDROmorphone HCL INJ (*CRX) 1 MG/ML SYR IV PUSH (01:21)
[2022-01-29] MEDS: oxyCODONE HCL (*CRX) 5 MG TAB IR PO ×5 (03:14→21:39)
[2022-01-29] MEDS: oxyCODONE/ACETAMINOPHEN (*CRX) 5-325 MG TABLET 1 TABLET PO ×5 (03:15→21:38)
[2022-01-29 05:25] VITALS: BP 120/75; PULSE 87; RESP 16; TEMP 37.3; O2SAT 99
[2022-01-29] MEDS: ERYTHROMYCIN OPHTH OINTMENT 1 GM TUBE 1 APPLIC LEFT EYE ×5 (05:32→21:48)
[2022-01-29 07:46] LABS: Hematocrit 38.3 % (42.0-52.0); Hemoglobin 13.1 g/dL (14.0-18.0); Mean Corpuscular HGB Conc 34.2 g/dl (32-36); Mean Corpuscular Hemoglobin 28.4 pg (26-34); Mean Corpuscular Volume 82.9 fl (80-100); Mean Platelet Volume 9.2 fl (7.4-10.4); Platelet Count Result 402 k/mm3 (150-375); Red Blood Count 4.62 M/mm3 (4.6-6.20); Red Cell Distribution Width 13.9 % (11.5-14.5); White Blood Count 9.1 K/mm3 (4.5-10.0)
[2022-01-29 07:57] VITALS: O2SAT 98
[2022-01-29 07:59] LABS: Anion Gap 4 mmol/L (8-16); Blood Urea Nitrogen 8 mg/dL (9-20); Calcium 7.8 mg/dL (8.4-10.2); Carbon Dioxide 30 mmol/L (22-30); Chloride 94 mmol/L (98-107); Estimated CRCL calculation 127 ml/min; Estimated Glomerular Filt Rate > 60; Glucose 102 mg/dL (65-110); Potassium 3.5 mmol/L (3.4-5.0); Sodium 128 mmol/L (137-145)
[2022-01-29 08:00] VITALS: PULSE 87; RESP 16; O2SAT 98
--- NOTE | 2022-01-29 08:45 | PM.IMPN ---
Progress Note: A&P Assessment and Plan (1) Bladder mass: Code(s): N32.89 - Other specified disorders of bladder Status: Acute (2) Chest wall mass: Code(s): R22.2 - Localized swelling, mass and lump, trunk Status: Acute (3) Deep vein thrombosis of both upper extremities: Code(s): I82.623 - Acute embolism and thrombosis of deep veins of upper extremity, bilateral Status: Acute (4) Tobacco abuse: Code(s): Z72.0 - Tobacco use Status: Acute (5) Dehydration: Code(s): E86.0 - Dehydration Status: Acute (6) Hyponatremia: Code(s): E87.1 - Hypo-osmolality and hyponatremia Status: Acute (7) Hypokalemia: Code(s): E87.6 - Hypokalemia Status: Acute (8) Diffuse lymphadenopathy: Code(s): R59.1 - Generalized enlarged lymph nodes Status: Acute (9) Constipation: Code(s): K59.00 - Constipation, unspecified Status: Acute (10) Back pain: Code(s): M54.9 - Dorsalgia, unspecified Status: Acute Additional Plan 41-year-old Irish-speaking male here with severely diffuse lymphadenopathy, multiple upper extremity DVTs in the bilateral upper extremities, chest wall mass, 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 Oncology, pulmonology, Urology, General surgery consultations all pending. Concern for possible active TB disease was noted on imaging, patient currently in precautions and QuantiFERON gold testing is pending. As soon as the test comes back negative, general surgery will proceed with a biopsy of 1 of the lymph nodes so we can further delineate the etiology of the masses and lymphadenopathy. 01/27/22 Pulmonology consult pending Started on heparin drip Likely due to underlying malignancy with unknown primary, oncology consulted, general surgery consulted for possible lymph node biopsy Slightly worse today, unsure of etiology, could be SIADH versus hypovolemia, will start gentle IV fluids and recheck in the a.m. Resolved, recheck and monitor 01/28/22 general diet LMWH 1mg/kg dilaudid IV -> percocet PO 5/325 and 10/325 PRN miralax and dulcolax PRN reprogram bx when Quant gold resulted cont airborne precautions cont supportive care pt may shower 5/4/22 cont current care dulcolax and mag citrate lidocaine patch to back anticipate bx w Dr Will in 24-48hrs and then dc home Subjective Date/time seen: 01/29/22 08:45 [facility] should release quant results later today or tomorrow Dr Will is in agreement and waiting to perform core bx of lymphnode POC reviewed w Dr Carrasquillo and Dr Hastings Radiology has been called to cancel bedside US guided bx pt complaining of pain and constipation Exam Narrative: General: No acute distress, well-developed well-nourished HEENT: Mucous membranes are moist Respiratory: Clear to auscultation bilaterally, no increased work of breathing Cardiovascular: Regular rate, regular rhythm, 2+ bilateral radial pedal pulses Gastrointestinal: nondistended, generalized tenderness to palpation Skin: No jaundice, no pallor Musculoskeletal: No clubbing, cyanosis or edema Neurological: Alert and oriented, speech is clear, no facial asymmetry Psychiatric: Appropriate mood and affect, pleasant and cooperative Hematologic/lymphatic: multiple lymph nodes all nontender but grossly enlarged, no petechiae, no bruising Objective Data Vital Signs Vital Signs: Vital Signs - 24 hr 01/28/22 14:00 01/28/22 21:26 01/28/22 22:45 Temperature 98.1 F 98.4 F 98.4 F Pulse Rate 97 90 Respiratory Rate 16 18 Blood Pressure 128/79 119/73 Pulse Oximetry 98 98 01/29/22 05:25 01/29/22 07:57 Temperature 99.1 F Pulse Rate 87 Respiratory Rate 16 Blood Pressure 120/75 Pulse Oximetry 99 98 Intake/Output Intake/Output: Intake & Output 01/26/22 01/27/22 01/28/22 01/29/22 23:59 23:59 23:59 23:59 Intake Total 2380 1640 Output Total 220 Balance 2160 1640
--- NOTE | 2022-01-29 09:07 | PM.PNPUL ---
Progress Note: A&P Assessment and Plan (1) Diffuse lymphadenopathy: Code(s): R59.1 - Generalized enlarged lymph nodes Status: Acute Assessment and Plan: 01/27 Patient with diffuse lymphadenopathy and is scheduled to have a surgical biopsy of his left neck lymphadenopathy later today. He has no parenchymal pulmonary infiltrates and he is on room air with saturations 98%. He has no fever, chills, rigors, cough, phlegm production, hemoptysis or chest pains. He is HIV negative. He has no evidence of a bacterial pneumonia at this time and I agree with no antibiotics pending additional studies. This is a low likelihood that he has disseminated tuberculosis but I agree with QuantiFERON gold, AFB q.a.m. x3 and respiratory isolation until and alternative diagnosis is made. He has no history of reactive airways disease and no wheezing currently thus there is no need for bronchodilators or steroids. upper and lower extremity Dopplers are ordered to assess for DVT. 01/28 I interviewed the patient with a video director of athletics. Patient has no respiratory complaints and he remains on room air with saturations 98%. He denies fever, chills, cough, phlegm production or hemoptysis. His white blood cell count is 9.1. Patient was started on IV heparin for a left IJ, left subclavian and left axillary DVT. right brachial vein thrombus. Lower extremity Dopplers were negative. Patient states that his neck mass may be slightly smaller today. QuantiFERON gold is pending. eventual surgical left neck biopsy. Change to Lovenox 1 mg b.i.d. 01/29 I interviewed the patient with a video director of athletics. Patient continues to have no respiratory complaints and no shortness of breath. Room air saturations are 99%. Patient is complaining of back pain and is requesting pain medicines. Patient remains constipated. Neck swelling is unchanged. White blood cell count 9.1, creatinine 0.6. I spoke with [email or web address] and the patient relations representative told me that the QuantiFERON gold test should be set up today with results by end of day. Discussed with Dr. Caicedo. Will follow with you Subjective Date/time seen: 01/29/22 09:07 Interval history: 01/27/2022: This is a new pulmonary consult for possible tuberculosis pneumonia and diffuse lymphadenopathy. 41-year-old Namibian-speaking male who was interviewed using a telemonitor health insurance sales agent. The patient denies any chronic medical conditions. The patient tells me he has had constipation for 1 month, 3 weeks decreased appetite with weight loss and 2 day history of left neck swelling. Patient also has fatigue as well as back pain and presented to the emergency department. White blood cell count was 10.1, hemoglobin 13.3, creatinine 0.6, LFTs were normal, TSH 1.61. CT scan of the chest demonstrated small bilateral pleural effusions, mediastinal bilateral axillary lymphadenopathy, intermuscular mass in the left posterior thorax, possible subclavian and axillary vein thrombosis, left neck lymphadenopathy, small volume ascites, periportal, Demian celiac, mesenteric, aortocaval, left pair a aortic, bilateral common iliac, bilateral external iliac and bilateral internal iliac lymphadenopathy. There is a 2 x 1.4 cm mass in the bladder there are scattered peritoneal masses. This was concerning for lymphadenopathy or possible tuberculosis. the patient has remained on room air with saturations 98%. Patient's HIV test is negative. I was consulted. Patient denies any respiratory limitations in his life and has no shortness of breath or dyspnea on exertion currently. Tells me he has never had any fever, chills or rigors. He denies any cough, phlegm production or hemoptysis. He states he had no trauma to the left neck area. He states he has decreased appetite for 3 weeks with weight loss and he has been constipated for 1 month. He tells me he has had no respiratory limitations in his activities of daily living and has worked
[2022-01-29] MEDS: ENOXAPARIN 80 MG/0.8 ML SYRINGE 68 MG SUB-Q ×2 (10:41→21:48)
[2022-01-29 13:12] LABS: NIL 0.02 IU/mL; Quantiferon TB Plus, 1T NEGATIVE (NEGATIVE)
[2022-01-29 14:00] VITALS: BP 123/78; PULSE 86; RESP 19; TEMP 37.6; O2SAT 98
[2022-01-29] MEDS: BISACODYL 10 MG SUPPOSITORY RECTAL (16:59)
[2022-01-29] MEDS: MAGNESIUM CITRATE 300 ML BTL PO (16:59)
[2022-01-29 19:21] LABS: EBV Nuclear Ab Interpretation Past; EBV Virus Capsid Ag IgM Ab <36.00 U/mL (<36.00)
[2022-01-29 22:00] VITALS: BP 119/76; PULSE 94; RESP 18; TEMP 37.4; O2SAT 98
[2022-01-30] MEDS: HYDROmorphone HCL INJ (*CRX) 1 MG/ML SYR IV PUSH (02:18)
[2022-01-30 06:00] VITALS: BP 129/81; PULSE 100; RESP 18; TEMP 37; O2SAT 99
[2022-01-30] MEDS: oxyCODONE/ACETAMINOPHEN (*CRX) 5-325 MG TABLET 1 TABLET PO ×5 (06:13→23:26)
[2022-01-30] MEDS: oxyCODONE HCL (*CRX) 5 MG TAB IR PO ×4 (06:14→19:54)
[2022-01-30] MEDS: ERYTHROMYCIN OPHTH OINTMENT 1 GM TUBE 1 APPLIC LEFT EYE ×5 (06:15→19:55)
[2022-01-30 06:22] LABS: Basophils Absolute Auto 0.1 K/mm3 (0.0-0.1); Basophils Percent Auto 0.6 % (0.2-1.2); Eosinophils Absolute Auto 0.1 K/mm3 (0-0.3); Eosinophils Percent Auto 0.7 % (0-4.4); Hematocrit 39.9 % (42.0-52.0); Hemoglobin 13.5 g/dL (14.0-18.0); Immature Granulocyte Absolute 0.04 K/mm3 (0.00-0.031); Immature Granulocyte Percent A 0.4 % (0-0.5); Lymphocytes Absolute Auto 0.57 K/mm3 (0.9-3.2); Lymphocytes Percent Auto 6.1 % (18.3-44.2); Mean Corpuscular HGB Conc 33.8 g/dl (32-36); Mean Corpuscular Hemoglobin 28.1 pg (26-34); Mean Platelet Volume 9.2 fl (7.4-10.4); Monocytes Absolute Auto 0.7 K/mm3 (0.1-0.6); Monocytes Percent Auto 7.7 % (2.6-8.5); Neutrophils Percent Auto 84.5 % (45.5-73.1); Platelet Count Result 443 k/mm3 (150-375); Red Blood Count 4.81 M/mm3 (4.6-6.20); Red Cell Distribution Width 13.7 % (11.5-14.5); White Blood Count 9.4 K/mm3 (4.5-10.0)
[2022-01-30 06:32] LABS: Anion Gap 7 mmol/L (8-16); Blood Urea Nitrogen 10 mg/dL (9-20); Calcium 7.7 mg/dL (8.4-10.2); Carbon Dioxide 29 mmol/L (22-30); Chloride 92 mmol/L (98-107); Estimated CRCL calculation 110 ml/min; Estimated Glomerular Filt Rate > 60; Glucose 105 mg/dL (65-110); Potassium 3.8 mmol/L (3.4-5.0); Sodium 128 mmol/L (137-145)
[2022-01-30] MEDS: LIDOCAINE 5% PATCH 1 PATCH TRANSDERM (08:52)
--- NOTE | 2022-01-30 09:36 | PM.PNGS ---
Progress Note: A&P Assessment and Plan (1) Diffuse lymphadenopathy: Code(s): R59.1 - Generalized enlarged lymph nodes Status: Acute Assessment and Plan: will setup for L cervical LN biopsy tomorrow, NPO p MN (2) Deep vein thrombosis of both upper extremities: Code(s): I82.623 - Acute embolism and thrombosis of deep veins of upper extremity, bilateral Status: Acute Assessment and Plan: will need to have Lovenox dose held tonight Subjective Subjective Date/Time Seen: 01/30/22 09:36 no acute issues, still c/o back pain Review of Systems Review of Systems: All systems reviewed & are unremarkable except as noted in HPI and below Exam Const: General: cooperative and no acute distress Orientation/consciousness: patient oriented x3 Neck: Lymphatic: lymphadenopathy Other: significant L cervical LAD, bilateral axillary LAD Resp: Auscultation: clear to auscultation bilaterally Cardio: Rate: regular rate Rhythm: regular rhythm GI: Inspection: normal to inspection and non-distended GI Palp: Yes Soft to palpation, No Tenderness to palpation present (GI), No Guarding due to palpation present (GI) and No Rigid due to palpation Objective Data Vital Signs Vital Signs: Vital Signs - 24 hr 01/29/22 14:00 01/29/22 22:00 01/30/22 06:00 Temperature 37.6 C H 37.4 C 37.0 C Pulse Rate 86 94 100 Respiratory Rate 19 18 18 Blood Pressure 123/78 119/76 129/81 Pulse Oximetry 98 98 99 Intake/Output Intake/Output: Intake & Output 01/27/22 01/28/22 01/29/22 01/30/22 23:59 23:59 23:59 23:59 Intake Total 2380 1640 240 300 Output Total 220 Balance 2160 1640 240 300 Meds/Results Medications: Active Medications Generic Name Dose Route Start Last Admin Trade Name Freq PRN Reason Stop Dose Admin Bisacodyl 10 mg 01/28/22 10:35 Bisacodyl 10 Mg Suppository RECTAL QAM PRN Constipation 2nd choice Enoxaparin Sodium 68 mg 01/28/22 11:00 01/29/22 21:48 Enoxaparin 80 Mg/0.8 Ml Syringe SUB-Q 68 mg Q12HR KATE Administration Erythromycin 1 applic 01/27/22 05:00 01/30/22 08:51 Erythromycin Ophth Ointment 1 Gm Tube LEFT EYE 1 applic Q4HWA KATE Administration Hydromorphone HCl 1 mg 01/28/22 10:37 01/30/22 02:18 Hydromorphone Hcl Inj (*Crx) 1 Mg/Ml Syr IV PUSH 1 mg Q6H PRN Administration Breakthrough Pain Lidocaine 1 patch 01/30/22 09:00 01/30/22 08:52 Lidocaine 5% Patch TRANSDERM 1 patch DAILY KATE Administration Miscellaneous Information 0 each 01/29/22 00:01 01/29/22 16:59 Where To Apply Lidocaine Patch? XX 02/28/22 00:00 Not Given [facility] Ondansetron HCl 4 mg 01/27/22 03:05 Ondansetron Inj 4 Mg/2 Ml Vial IV PUSH Q4H PRN Nausea Oxycodone HCl 5 mg 01/28/22 10:39 01/30/22 06:14 Oxycodone Hcl (*Crx) 5 Mg Tab Ir PO 5 mg Q4H PRN Administration Pain Rated 7-10 Oxycodone/Acetaminophen 1 tablet 01/28/22 10:34 01/30/22 06:13 Oxycodone/Acetaminophen (*Crx) 5-325 Mg Tablet PO 1 tablet Q4H PRN Administration Pain Rated 4-6 Oxycodone/Acetaminophen 1 tablet 01/28/22 10:39 Oxycodone/Acetaminophen (*Crx) 5-325 Mg Tablet PO Q4H PRN Pain Rated 7-10 Polyethylene Glycol 17 gm 01/28/22 10:34 Polyethylene Glycol 3350 17 Gm Powd.Pack PO DAILY PRN Constipation Radiology Results: ITS Impressions Neck/Chest/Abdomen/Pelvis CT 01/27/22 08:29 IMPRESSION: 1. Widespread lymphadenopathy involving the left neck, chest, abdomen, and pelvis. Left posterior chest wall mass. Bladder mass. Peritoneal masses. The differential diagnosis includes widespread metastatic disease, lymphoma, and infection such as tuberculosis. Ultrasound-guided core needle biopsy of a left neck lymph node is recommended. 2. Hypodensity in left subclavian and axillary veins and some of the pelvic veins suspicious for thrombosis. Ultrasound is recommended. 3. Gallbladder distention, which may
[2022-01-30] MEDS: ENOXAPARIN 80 MG/0.8 ML SYRINGE 68 MG SUB-Q ×2 (13:43→19:55)
[2022-01-30 13:56] VITALS: BP 121/82; PULSE 96; RESP 16; TEMP 36.9; O2SAT 99
--- NOTE | 2022-01-30 16:47 | PM.IMPN ---
Progress Note: A&P Assessment and Plan (1) Bladder mass: Code(s): N32.89 - Other specified disorders of bladder Status: Acute (2) Chest wall mass: Code(s): R22.2 - Localized swelling, mass and lump, trunk Status: Acute (3) Deep vein thrombosis of both upper extremities: Code(s): I82.623 - Acute embolism and thrombosis of deep veins of upper extremity, bilateral Status: Acute (4) Tobacco abuse: Code(s): Z72.0 - Tobacco use Status: Acute (5) Dehydration: Code(s): E86.0 - Dehydration Status: Acute (6) Hyponatremia: Code(s): E87.1 - Hypo-osmolality and hyponatremia Status: Acute (7) Hypokalemia: Code(s): E87.6 - Hypokalemia Status: Acute (8) Diffuse lymphadenopathy: Code(s): R59.1 - Generalized enlarged lymph nodes Status: Acute (9) Constipation: Code(s): K59.00 - Constipation, unspecified Status: Acute (10) Back pain: Code(s): M54.9 - Dorsalgia, unspecified Status: Acute Additional Plan 41-year-old Albanian-speaking male here with severely diffuse lymphadenopathy, multiple upper extremity DVTs in the bilateral upper extremities, chest wall mass, 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 Oncology, pulmonology, Urology, General surgery consultations all pending. Concern for possible active TB disease was noted on imaging, patient currently in precautions and QuantiFERON gold testing is pending. As soon as the test comes back negative, general surgery will proceed with a biopsy of 1 of the lymph nodes so we can further delineate the etiology of the masses and lymphadenopathy. 01/27/22 Pulmonology consult pending Started on heparin drip Likely due to underlying malignancy with unknown primary, oncology consulted, general surgery consulted for possible lymph node biopsy Slightly worse today, unsure of etiology, could be SIADH versus hypovolemia, will start gentle IV fluids and recheck in the a.m. Resolved, recheck and monitor 01/28/22 general diet LMWH 1mg/kg dilaudid IV -> percocet PO 5/325 and 10/325 PRN miralax and dulcolax PRN reprogram bx when Quant gold resulted cont airborne precautions cont supportive care pt may shower 5/4/22 cont current care dulcolax and mag citrate lidocaine patch to back anticipate bx w Dr Will in 24-48hrs and then dc home 01/30/22 cervical lymphnode bx tomorrow NPO at [place] hold LMWH tonight plan to restart LMWH tomorrow night pain poorly controlled pt w diffuse lymphadenopathy and peritoneal /bladder masses MS contin low dose BID cont IR Percocet PRN q 4hrs c/s Dr Hastings Subjective Date/time seen: 01/30/22 16:47 pt doing ok in agreement for bx tomorrow cont complain of severe back pain BM after laxative reported Exam Narrative: General: No acute distress, well-developed well-nourished HEENT: Mucous membranes are moist, large palpable neck mass Respiratory: Clear to auscultation bilaterally, no increased work of breathing Cardiovascular: Regular rate, regular rhythm Gastrointestinal: nondistended, generalized tenderness to palpation Skin: No jaundice, no pallor Musculoskeletal: No clubbing, cyanosis or edema Neurological: Alert and oriented, speech is clear, no facial asymmetry Hematologic/lymphatic: multiple lymph nodes all nontender but grossly enlarged, no petechiae, no bruising Objective Data Vital Signs Vital Signs: Vital Signs - 24 hr 01/29/22 22:00 01/30/22 06:00 01/30/22 13:56 Temperature 99.4 F 98.6 F 98.5 F Pulse Rate 94 100 96 Respiratory Rate 18 18 16 Blood Pressure 119/76 129/81 121/82 Pulse Oximetry 98 99 99 Intake/Output Intake/Output: Intake & Output 01/27/22 01/28/22 01/29/22 01/30/22 23:59 23:59 23:59 23:59 Intake Total 2380 1640 240 540 Output Total 220 Balance 2160 1640 240 540 Meds/Results Medications: Active Medications Generic Name Dose Route Start Last Admin Tra
[2022-01-30 18:05] LABS: CMV IgM Antibody <30.00 AU/mL (<30.00)
[2022-01-30] MEDS: MORPHINE SULFATE (*CRX) 15 MG TABCR PO (19:54)
[2022-01-30 22:07] VITALS: BP 120/78; PULSE 96; RESP 18; TEMP 37.3; O2SAT 99
[2022-01-31] VITALS (8 sets, daily range): BP systolic 107–128; BP diastolic 75–84; PULSE 86–109; RESP 16–25; TEMP 36.1–37; O2SAT 95–99
[2022-01-31] MEDS: oxyCODONE/ACETAMINOPHEN (*CRX) 5-325 MG TABLET 1 TABLET PO ×5 (00:52→23:52)
[2022-01-31] MEDS: oxyCODONE HCL (*CRX) 5 MG TAB IR PO ×4 (00:52→23:53)
[2022-01-31] MEDS: ERYTHROMYCIN OPHTH OINTMENT 1 GM TUBE 1 APPLIC LEFT EYE ×4 (04:29→20:18)
[2022-01-31] MEDS: LACTATED RINGERS 1,000 ML 30 ML IV CONT (07:50)
--- NOTE | 2022-01-31 08:03 | WPDANESEPPF ---
Anes - Initial Pre Proc Eval Procedure: Operation Date: 01/31/22 09:00 Proposed Procedures p Left Neck Lymph Node Biopsy - Cass Will MD Date/Time: 01/31/22 08:03 Surgeon: Althea Alfaro DO Pre Op Diagnosis: Lymphadenopathy Patient Data Age: 41 Gender: M Height: 1.68 m Weight: 68.1 kg Last Vital Signs Temp 37.0 C 01/31/22 06:35 Pulse 86 01/31/22 06:35 Resp 18 01/31/22 06:35 BP 120/80 01/31/22 06:35 Pulse Ox 98 01/31/22 06:35 Allergies Allergy/AdvReac Type Severity Reaction Status Date / Time No Known Allergies Allergy Verified 01/26/22 18:52 Home Medications Medication Instructions Recorded Confirmed Type No Home Medications 01/27/22 01/27/22 History Laboratory Tests 01/27/22 07:17 CMV IgM Ab <30.00 AU/mL AU/mL (<30.00) Patient hx anesthesia problems: none Family hx anesthesia problems: none Results Review: All pre-operative results and documents have been reviewed as part of the pre-operative evaluation. [facility] Past Medical History Medical History (Updated 01/31/22 @ 08:06 by Braydon Matthews DO) Deep vein thrombosis of both upper extremities Diffuse lymphadenopathy Hyponatremia Surgical History Surgical History (Updated 01/28/22 @ 19:08 by Sanchez Hastings MD) No history of previous surgery Family History Family History Mother Cancer Social History Social History Social History: He is . He has 3 children who are healthy. He drinks 1 tall boy a each weekend. He started smoking 2 years ago at the time of his divorce. He smokes a half a pack of cigarettes per day. He denies any illicit substance use. Smoking packs per day: 0.5 Smoking cigarettes per day: 10.0 Years smoked: 2 Smoking pack-years: 1.00 Smoking status: Current every day smoker Tobacco type: cigarettes Alcohol intake: never Substance use: never Spiritual care concerns: No Anes - Eval Final PreProcedure Day of Procedure 05/06/22 08:03 Patient weight: normal Heart: regular rate and rhythm Lungs: clear to auscultation and normal air movement Airway: Mallampati scale class II Neurological: alert and oriented Last oral intake: >/= 8 hours ASA classification: III Emergent: no Anesthetic plan: proceed Anesthesia type and monitoring: general LMA and standard monitoring Results Review: All pre-operative results and documents have been reviewed as part of the pre-operative evaluation. Informed Consent: The patient's anesthetic plan and its attendant risks and benefits were discussed with the patient/family/POA. Questions were solicited and answers provided to the satisfaction of the patient/family/POA.
--- NOTE | 2022-01-31 08:24 | WPDHPUPDATE1 ---
History and Physical Update Update Date/Time: 01/31/22 08:24 History and Physical has been reviewed, including an updated exam of the patient. There are NO changes in the patient's condition. Risks, benefits, and alternatives have been discussed and questions answered. Patient agrees to proceed with procedure.
[2022-01-31] MEDS: LIDO 1%/EPINEPHRINE/PF 1:200,000 30 ML VIAL XX (09:07)
--- NOTE | 2022-01-31 09:19 | SUR.OPER ---
Left Neck Lymph Node Biopsy sent fresh. Specimen given to raj CUEVAS. Specimen received in lab by Kamala at 0011
--- NOTE | 2022-01-31 09:48 | W.PM.PROC2 ---
Procedure Note - Detailed Date of Procedure 01/31/22 Pre-op Diagnosis Lymphadenopathy Post-op Diagnosis Same Procedure Performed Excisional biopsy left posterior cervical lymphadenopathy Surgeon Cass Will MD Anesthesia General and Local Indications 41-year-old male presenting with diffuse left-sided lymphadenopathy, intentional weight loss Findings multiple matted friable hard masses consistent with lymphadenopathy and posterior cervical chain Description of Procedure The patient was taken the operating room and placed in the supine position. After adequate induction of general anesthesia, the patient was prepped and draped in the normal sterile fashion. A time-out was then done to verify the patient's identity, as well as the procedure being performed. I began by localizing an area in the posterior cervical chain or there was noted to be some massive lymphadenopathy. Once localized, went ahead and made an incision through the dermis into the subcutaneous tissue. In the subcutaneous tissue, encountered multiple hard friable masses. Of note, these masses were matted together. Given the enormous amount of lymphadenopathy and inflammation, I decided to just take a piece of this tissue to send for pathology diagnosis. I excised an approximate 5 x 5 piece of tissue that seemed to contain multiple lymph nodes. This was then sent fresh to pathology for further review. I then copiously irrigated the cavity and hemostasis was gained with the Bovie cautery. I then closed subcutaneous tissue with 3-0 Vicryl suture and the skin was closed with 4 Monocryl subcuticular suture. The patient tolerated the procedure well and was extubated in the operating room postop. He will be transferred to the recovery room in stable condition. Estimated Blood Loss 5 Drains No Packing No Pathology Yes Complications No immediate complications Condition Stable Disposition PACU
--- NOTE | 2022-01-31 10:42 | PM.IMPN ---
Progress Note: A&P Assessment and Plan (1) Bladder mass: Code(s): N32.89 - Other specified disorders of bladder Status: Acute (2) Chest wall mass: Code(s): R22.2 - Localized swelling, mass and lump, trunk Status: Acute (3) Deep vein thrombosis of both upper extremities: Code(s): I82.623 - Acute embolism and thrombosis of deep veins of upper extremity, bilateral Status: Acute (4) Tobacco abuse: Code(s): Z72.0 - Tobacco use Status: Acute (5) Dehydration: Code(s): E86.0 - Dehydration Status: Acute (6) Hyponatremia: Code(s): E87.1 - Hypo-osmolality and hyponatremia Status: Acute (7) Hypokalemia: Code(s): E87.6 - Hypokalemia Status: Acute (8) Diffuse lymphadenopathy: Code(s): R59.1 - Generalized enlarged lymph nodes Status: Acute (9) Constipation: Code(s): K59.00 - Constipation, unspecified Status: Acute (10) Back pain: Code(s): M54.9 - Dorsalgia, unspecified Status: Acute Additional Plan 41-year-old Yi-speaking male here with severely diffuse lymphadenopathy, multiple upper extremity DVTs in the bilateral upper extremities, chest wall mass, 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 Oncology, pulmonology, Urology, General surgery consultations all pending. Concern for possible active TB disease was noted on imaging, patient currently in precautions and QuantiFERON gold testing is pending. As soon as the test comes back negative, general surgery will proceed with a biopsy of 1 of the lymph nodes so we can further delineate the etiology of the masses and lymphadenopathy. 01/27/22 Pulmonology consult pending Started on heparin drip Likely due to underlying malignancy with unknown primary, oncology consulted, general surgery consulted for possible lymph node biopsy Slightly worse today, unsure of etiology, could be SIADH versus hypovolemia, will start gentle IV fluids and recheck in the a.m. Resolved, recheck and monitor 01/28/22 general diet LMWH 1mg/kg dilaudid IV -> percocet PO 5/325 and 10/325 PRN miralax and dulcolax PRN reprogram bx when Quant gold resulted cont airborne precautions cont supportive care pt may shower 5/4/22 cont current care dulcolax and mag citrate lidocaine patch to back anticipate bx w Dr Will in 24-48hrs and then dc home 01/30/22 cervical lymphnode bx tomorrow NPO at [place] hold LMWH tonight plan to restart LMWH tomorrow night pain poorly controlled pt w diffuse lymphadenopathy and peritoneal /bladder masses MS contin low dose BID cont IR Percocet PRN q 4hrs c/s Dr Hastings 01/31/22 pending to be seen by Dr Hastings bx performed without compliciation pain control improving will cont to adjust c/s CC for dc planning Subjective Date/time seen: 01/31/22 10:42 pt doing ok understands procedure from this am pain better controlled w MS contin advised w will be discharging soon and will c/s CM to followup on options for healthcare access Exam Narrative: General: No acute distress, well-developed well-nourished HEENT: Mucous membranes are moist, large palpable neck mass, surgical site closed durabond Respiratory: Clear to auscultation bilaterally, no increased work of breathing Gastrointestinal: nondistended, generalized tenderness to palpation Skin: No jaundice, no pallor Musculoskeletal: No clubbing, cyanosis or edema Neurological: Alert and oriented, speech is clear, no facial asymmetry Hematologic/lymphatic: multiple lymph nodes all nontender but grossly enlarged, no petechiae, no bruising Objective Data Vital Signs Vital Signs: Vital Signs - 24 hr 01/30/22 13:56 01/30/22 22:07 01/31/22 06:35 Temperature 98.5 F 99.2 F 98.6 F Pulse Rate 96 96 86 Respiratory Rate 16 18 18 Blood Pressure 121/82 120/78 120/80 Pulse Oximetry 99 99 98 01/31/22 07:47 01/31/22 09:29 01/31/22 09:44 Temperature 98.3 F 97 F L Pulse Rat
[2022-01-31] MEDS: ENOXAPARIN 80 MG/0.8 ML SYRINGE 68 MG SUB-Q ×2 (11:07→20:18)
[2022-01-31] MEDS: MORPHINE SULFATE (*CRX) 15 MG TABCR PO ×2 (11:09→20:16)
[2022-01-31] MEDS: polyethylene glycoL 3350 17 GM POWD.PACK PO (11:51)
[2022-01-31] MEDS: BISACODYL 10 MG SUPPOSITORY RECTAL (11:51)
[2022-02-01] MEDS: oxyCODONE/ACETAMINOPHEN (*CRX) 5-325 MG TABLET 1 TABLET PO ×4 (04:27→18:30)
[2022-02-01] MEDS: oxyCODONE HCL (*CRX) 5 MG TAB IR PO ×2 (04:28→09:30)
[2022-02-01] MEDS: ERYTHROMYCIN OPHTH OINTMENT 1 GM TUBE 1 APPLIC LEFT EYE ×5 (04:29→20:51)
[2022-02-01 06:00] VITALS: BP 120/81; PULSE 80; RESP 16; TEMP 36.4; O2SAT 97
[2022-02-01 08:00] VITALS: PULSE 80; RESP 16; O2SAT 97
[2022-02-01] MEDS: MORPHINE SULFATE (*CRX) 15 MG TABCR PO (08:06)
[2022-02-01] MEDS: polyethylene glycoL 3350 17 GM POWD.PACK PO (08:08)
[2022-02-01] MEDS: LIDOCAINE 5% PATCH 1 PATCH TRANSDERM (08:08)
[2022-02-01] MEDS: ENOXAPARIN 80 MG/0.8 ML SYRINGE 68 MG SUB-Q ×2 (08:09→20:52)
--- NOTE | 2022-02-01 08:46 | PM.IMPN ---
Progress Note: A&P Assessment and Plan (1) Bladder mass: Code(s): N32.89 - Other specified disorders of bladder Status: Acute (2) Chest wall mass: Code(s): R22.2 - Localized swelling, mass and lump, trunk Status: Acute (3) Deep vein thrombosis of both upper extremities: Code(s): I82.623 - Acute embolism and thrombosis of deep veins of upper extremity, bilateral Status: Acute (4) Tobacco abuse: Code(s): Z72.0 - Tobacco use Status: Acute (5) Dehydration: Code(s): E86.0 - Dehydration Status: Acute (6) Hyponatremia: Code(s): E87.1 - Hypo-osmolality and hyponatremia Status: Acute (7) Hypokalemia: Code(s): E87.6 - Hypokalemia Status: Acute (8) Diffuse lymphadenopathy: Code(s): R59.1 - Generalized enlarged lymph nodes Status: Acute (9) Constipation: Code(s): K59.00 - Constipation, unspecified Status: Acute (10) Back pain: Code(s): M54.9 - Dorsalgia, unspecified Status: Acute Additional Plan 41-year-old Tajik-speaking male here with severely diffuse lymphadenopathy, multiple upper extremity DVTs in the bilateral upper extremities, chest wall mass, 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 Oncology, pulmonology, Urology, General surgery consultations all pending. Concern for possible active TB disease was noted on imaging, patient currently in precautions and QuantiFERON gold testing is pending. As soon as the test comes back negative, general surgery will proceed with a biopsy of 1 of the lymph nodes so we can further delineate the etiology of the masses and lymphadenopathy. 01/27/22 Pulmonology consult pending Started on heparin drip Likely due to underlying malignancy with unknown primary, oncology consulted, general surgery consulted for possible lymph node biopsy Slightly worse today, unsure of etiology, could be SIADH versus hypovolemia, will start gentle IV fluids and recheck in the a.m. Resolved, recheck and monitor 01/28/22 general diet LMWH 1mg/kg dilaudid IV -> percocet PO 5/325 and 10/325 PRN miralax and dulcolax PRN reprogram bx when Quant gold resulted cont airborne precautions cont supportive care pt may shower 5/4/22 cont current care dulcolax and mag citrate lidocaine patch to back anticipate bx w Dr Will in 24-48hrs and then dc home 01/30/22 cervical lymphnode bx tomorrow NPO at [place] hold LMWH tonight plan to restart LMWH tomorrow night pain poorly controlled pt w diffuse lymphadenopathy and peritoneal /bladder masses MS contin low dose BID cont IR Percocet PRN q 4hrs c/s Dr Hastings 01/31/22 pending to be seen by Dr Hastings bx performed without compliciation pain control improving will cont to adjust c/s CC for dc planning 02/01/22 cont current care increase MS contin dc when ambulatory care able to arrange follow up appt Subjective Date/time seen: 02/01/22 08:46 pain not yet controlled , pending follow up from CC for dc Exam Narrative: General: No acute distress, well-developed well-nourished HEENT: Mucous membranes are moist, large palpable neck mass, surgical site closed durabond Respiratory: Clear to auscultation bilaterally, no increased work of breathing Gastrointestinal: nondistended, generalized tenderness to palpation Skin: No jaundice, no pallor Musculoskeletal: No clubbing, cyanosis or edema Neurological: Alert and oriented, speech is clear, no facial asymmetry Hematologic/lymphatic: multiple lymph nodes all nontender but grossly enlarged, no petechiae, no bruising Objective Data Vital Signs Vital Signs: Vital Signs - 24 hr 01/31/22 09:29 01/31/22 09:44 01/31/22 09:59 Temperature 97 F L Pulse Rate 107 H 106 H 99 Respiratory Rate 20 22 H 25 H Blood Pressure 107/75 112/80 120/84 Pulse Oximetry 99 96 96 01/31/22 10:14 01/31/22 14:00 01/31/22 22:00 Temperature 97.3 F L 97.8 F Pulse Rate 98 109 H 90
--- NOTE | 2022-02-01 09:47 | WPDANESPN ---
Anes - Prog Note Post-Op Date/Time: 02/01/22 09:47 Cardiovascular status: normal Respiratory status: normal Airway patency: baseline Mental status: baseline Post-Op hydration status: normal Vital Signs: Last Vital Signs Temp 97.5 F L 02/01/22 06:00 Pulse 80 02/01/22 06:00 Resp 16 02/01/22 06:00 BP 120/81 02/01/22 06:00 Pulse Ox 97 02/01/22 06:00 Pain Score (VAS): 10/07 I/O: Intake & Output 01/31/22 02/01/22 02/01/22 23:59 07:59 15:59 Intake Total 790 Balance 790 Laboratory Tests 01/30/22 05:44 01/30/22 05:44 Post-procedural complaints: none Patient Feedback: Patient satisfied with anesthetic care.
[2022-02-01] MEDS: BISACODYL 10 MG SUPPOSITORY RECTAL (12:13)
[2022-02-01 14:00] VITALS: BP 118/84; PULSE 83; RESP 16; TEMP 36.8; O2SAT 97
[2022-02-01] MEDS: MORPHINE SULFATE (*CRX) 30 MG TABCR PO (20:51)
[2022-02-01 22:00] VITALS: BP 120/77; PULSE 95; RESP 16; TEMP 36.6; O2SAT 97
[2022-02-02] MEDS: oxyCODONE/ACETAMINOPHEN (*CRX) 5-325 MG TABLET 1 TABLET PO ×4 (01:23→18:54)
[2022-02-02 06:00] VITALS: BP 119/74; PULSE 94; RESP 16; TEMP 36.3; O2SAT 98
[2022-02-02] MEDS: polyethylene glycoL 3350 17 GM POWD.PACK PO (06:19)
[2022-02-02] MEDS: ERYTHROMYCIN OPHTH OINTMENT 1 GM TUBE 1 APPLIC LEFT EYE ×5 (06:20→20:44)
[2022-02-02] MEDS: BISACODYL 10 MG SUPPOSITORY RECTAL (06:33)
[2022-02-02 08:00] VITALS: PULSE 94; RESP 16; O2SAT 98
[2022-02-02] MEDS: MORPHINE SULFATE (*CRX) 30 MG TABCR PO ×2 (10:07→20:43)
[2022-02-02] MEDS: ENOXAPARIN 80 MG/0.8 ML SYRINGE 68 MG SUB-Q ×2 (10:09→20:43)
[2022-02-02 14:00] VITALS: BP 117/80; PULSE 98; RESP 16; TEMP 37.4; O2SAT 95
--- NOTE | 2022-02-02 14:34 | PM.IMPN ---
Progress Note: A&P Assessment and Plan (1) Bladder mass: Code(s): N32.89 - Other specified disorders of bladder Status: Acute (2) Chest wall mass: Code(s): R22.2 - Localized swelling, mass and lump, trunk Status: Acute (3) Deep vein thrombosis of both upper extremities: Code(s): I82.623 - Acute embolism and thrombosis of deep veins of upper extremity, bilateral Status: Acute (4) Tobacco abuse: Code(s): Z72.0 - Tobacco use Status: Acute (5) Dehydration: Code(s): E86.0 - Dehydration Status: Acute (6) Hyponatremia: Code(s): E87.1 - Hypo-osmolality and hyponatremia Status: Acute (7) Hypokalemia: Code(s): E87.6 - Hypokalemia Status: Acute (8) Diffuse lymphadenopathy: Code(s): R59.1 - Generalized enlarged lymph nodes Status: Acute (9) Constipation: Code(s): K59.00 - Constipation, unspecified Status: Acute (10) Back pain: Code(s): M54.9 - Dorsalgia, unspecified Status: Acute Additional Plan 41-year-old Amharic-speaking male here with severely diffuse lymphadenopathy, multiple upper extremity DVTs in the bilateral upper extremities, chest wall mass, 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 Oncology, pulmonology, Urology, General surgery consultations all pending. Concern for possible active TB disease was noted on imaging, patient currently in precautions and QuantiFERON gold testing is pending. As soon as the test comes back negative, general surgery will proceed with a biopsy of 1 of the lymph nodes so we can further delineate the etiology of the masses and lymphadenopathy. 01/27/22 Pulmonology consult pending Started on heparin drip Likely due to underlying malignancy with unknown primary, oncology consulted, general surgery consulted for possible lymph node biopsy Slightly worse today, unsure of etiology, could be SIADH versus hypovolemia, will start gentle IV fluids and recheck in the a.m. Resolved, recheck and monitor 01/28/22 general diet LMWH 1mg/kg dilaudid IV -> percocet PO 5/325 and 10/325 PRN miralax and dulcolax PRN reprogram bx when Quant gold resulted cont airborne precautions cont supportive care pt may shower 5/4/22 cont current care dulcolax and mag citrate lidocaine patch to back anticipate bx w Dr Will in 24-48hrs and then dc home 01/30/22 cervical lymphnode bx tomorrow NPO at [facility] hold LMWH tonight plan to restart LMWH tomorrow night pain poorly controlled pt w diffuse lymphadenopathy and peritoneal /bladder masses MS contin low dose BID cont IR Percocet PRN q 4hrs c/s Dr Hastings 01/31/22 pending to be seen by Dr Hastings bx performed without compliciation pain control improving will cont to adjust c/s CC for dc planning 02/01/22 cont current care increase MS contin dc when assurance services manager health care able to arrange follow up appt 02/02/22 Discharged home in stable condition tomorrow after home health eval performed And oxygen arranged Patient will be discharged home on MS Contin 30 b.i.d. with oxycodone coverage given his extensive and painful lymphadenopathy He will also be discharge home on bowel regimen Follow-up with primary care physician newly established within 2 weeks Subjective Date/time seen: 02/02/22 14:34 patient doing okay his pain is better controlled with MS Contin 30 b.i.d.. We discussed him being discharged home tomorrow. Patient is notably a set would like to stay for the results of his biopsy and because of his lack of documentation immigration status and lack of insurance it will be difficult for him to follow-up. I did speak to assurance services manager health care Monse about this today she has little resources for this situation. RN is present for our conversation and has preceded to print out assistive information for patient from Internet which I have reviewed and think will be very informative and help guide him in this difficult time. Objective Data
[2022-02-02 22:00] VITALS: BP 124/78; PULSE 93; RESP 18; TEMP 37.1; O2SAT 97
[2022-02-03 01:51] VITALS: O2SAT 93
[2022-02-03] MEDS: oxyCODONE/ACETAMINOPHEN (*CRX) 5-325 MG TABLET 1 TABLET PO (05:06)
[2022-02-03] MEDS: ERYTHROMYCIN OPHTH OINTMENT 1 GM TUBE 1 APPLIC LEFT EYE ×2 (05:06→08:40)
[2022-02-03 06:00] VITALS: BP 120/75; PULSE 91; RESP 18; TEMP 36.8; O2SAT 99
[2022-02-03] MEDS: ENOXAPARIN 80 MG/0.8 ML SYRINGE 68 MG SUB-Q (08:40)
--- NOTE | 2022-02-03 08:40 | PM.DS ---
DS: Admitting Diagnosis Discharge Date 02/03/22 Admitting Diagnosis (1) Diffuse lymphadenopathy: Code(s): R59.1 - Generalized enlarged lymph nodes Status: Acute (2) Hordeolum externum of left upper eyelid: Code(s): H00.014 - Hordeolum externum left upper eyelid Status: Acute (3) Hypokalemia: Code(s): E87.6 - Hypokalemia Status: Acute (4) Hyponatremia: Code(s): E87.1 - Hypo-osmolality and hyponatremia Status: Acute (5) Dehydration: Code(s): E86.0 - Dehydration Status: Acute DS: Discharge Diagnosis Discharge Diagnosis (1) Deep vein thrombosis of both upper extremities: Code(s): I82.623 - Acute embolism and thrombosis of deep veins of upper extremity, bilateral Status: Acute (2) Hyponatremia: Code(s): E87.1 - Hypo-osmolality and hyponatremia Status: Acute (3) Diffuse lymphadenopathy: Code(s): R59.1 - Generalized enlarged lymph nodes Status: Acute (4) Back pain: Code(s): M54.9 - Dorsalgia, unspecified Status: Acute (5) Constipation: Code(s): K59.00 - Constipation, unspecified Status: Acute (6) Bladder mass: Code(s): N32.89 - Other specified disorders of bladder Status: Acute (7) Chest wall mass: Code(s): R22.2 - Localized swelling, mass and lump, trunk Status: Acute (8) Tobacco abuse: Code(s): Z72.0 - Tobacco use Status: Acute (9) Dehydration: Code(s): E86.0 - Dehydration Status: Acute (10) Hypokalemia: Code(s): E87.6 - Hypokalemia Status: Acute DS: Summary Hospital Course Reason for hospitalization: Back pain, constipation Hospital Course: 41-year-old Tristanian-speaking male here with severely diffuse lymphadenopathy, multiple upper extremity DVTs in the bilateral upper extremities, chest wall mass, 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 Oncology, pulmonology, Urology, General surgery consultations all pending. 01/27/22 Pulmonology consult pending Started on heparin drip Likely due to underlying malignancy with unknown primary, oncology consulted, general surgery consulted for possible lymph node biopsy Slightly worse today, unsure of etiology, could be SIADH versus hypovolemia, will start gentle IV fluids and recheck in the a.m. Resolved, recheck and monitor 01/28/22 general diet LMWH 1mg/kg dilaudid IV -> percocet PO 5/325 and 10/325 PRN miralax and dulcolax PRN reprogram bx when Quant gold resulted cont airborne precautions cont supportive care pt may shower 01/29/22 cont current care dulcolax and mag citrate lidocaine patch to back anticipate lymph node bx w Dr Will in 24-48hrs and then dc home 01/30/22 cervical lymphnode bx tomorrow NPO at [facility] hold LMWH tonight plan to restart LMWH tomorrow night pain poorly controlled pt w diffuse lymphadenopathy and peritoneal /bladder masses MS contin low dose BID cont IR Percocet PRN q 4hrs c/s Dr Hastings 01/31/22 pending to be seen by Dr Hastings bx performed without compliciation pain control improving will cont to adjust c/s CC for dc planning 02/01/22 cont current care increase MS contin dc when assurance services manager health care able to arrange follow up appt 02/02/22 Discharged home in stable condition tomorrow after home health eval performed And oxygen arranged Patient will be discharged home on MS Contin 30 b.i.d. with oxycodone coverage given his extensive and painful lymphadenopathy He will also be discharge home on bowel regimen Follow-up with primary care physician newly established within 2 weeks 02/03/22 discharge home in stable condition w indications to follow up with Dr Hastings for bx results and to establish w PCP pt provided a lot of info on how to apply for social assistance script for Natrelto sent to pharmacy Status at Discharge Functional status at discharge: independent ambulation Time Spent with Patient Time attestation: Total time spent p
[2022-02-03] MEDS: MORPHINE SULFATE (*CRX) 30 MG TABCR PO (08:41)
== END 2022-02-03 10:55 | disposition home or self-care (01) | DRG 681 ==
LOC: ANHED 23:20 → ANH3MEDSUR 01-27 03:29
PROVIDERS: Internal Medicine Pulmonary Disease; Student in an Organized Health Care Education/Training Program; Surgery; Admitting Provider Internal Medicine; Emergency Provider Emergency Medicine; Visit Provider Hospitalist
PROC: 07B23ZX Excision of Left Neck Lymphatic, Percutaneous Approach, Diagnostic (ICD-10-PCS; principal; 2022-01-31 09:00)
DX: C77.0 Secondary and unspecified malignant neoplasm of lymph nodes of head, face and neck (principal); C80.1 Malignant (primary) neoplasm, unspecified; H00.014 Hordeolum externum left upper eyelid; N32.89 Other specified disorders of bladder; E87.6 Hypokalemia; E22.2 Syndrome of inappropriate secretion of antidiuretic hormone; E86.0 Dehydration; K59.00 Constipation, unspecified; R22.2 Localized swelling, mass and lump, trunk; M54.9 Dorsalgia, unspecified; F17.210 Nicotine dependence, cigarettes, uncomplicated; I82.621 Acute embolism and thrombosis of deep veins of right upper extremity; I82.890 Acute embolism and thrombosis of other specified veins
CPT/HCPCS: 36415; 70491; 71045; 71260; 74177; 80048; 80053; 81001; 81455; 83735; 84443; 85025; 85027; 85610; 85730; 86308; 86480; 86644; 86645; 86664; 86665; 86703; 87491; 87591; 88305; 88313; 88333; 88342; 88360; 88381; 93970; 96361; 96365; 96366; 96367; 96372; 96374; 96375; 96376; 99285; A9270; G0378; G0379; G0432; J1100; J1170; J1644; J1650; J2250; J2270; J2405; J2704; J3010; J3480; J7030; J7040; J7120; Q9967